=== PATIENT | female | born 1955 | race Caucasian/White ===

== ENCOUNTER 2017-05-27 16:32 | Emergency (ER) | payer OTHER, SELFPAY ==
[2017-05-27 16:34] VITALS: BP 160/83; PULSE 71; RESP 16; TEMP 36.2; O2SAT 97; BMI 30.9
--- NOTE | 2017-05-27 16:48 | ED.VISSUMM ---
- ER Visit Summary Date of Service: 05/27/17 Chief Complaint: Fall, right wrist pain History of Present Illness: The patient is a 61 F who was walking her dog when she tripped and fell. She fell onto her face. She also fell on her outstretched right hand. She has right wrist pain sustained a lower lip laceration. Her last tetanus is unknown. No LOC. She denies any other complaints Physical Examination: Vital signs are reviewed. HEENT exam is 0.5 similar laceration to the bottom lip. It does not cross the vermilion border. Her right wrist is tender diffusely. She does have painful but full range of motion. Her GCS is 15 and her neurologic exam is normal Test Results: Right wrist reveals a small distal radius fracture Emergency Department Course and Treatment: Patient was medicated with Motrin and tetanus. Treatment Plan: The patient does have a small distal radius fracture. I will give her a wrist splint for immobilization. Short course of [place] for home. I do not feel her lip laceration is repaired as it will heal on its own. She will be given orthopedic follow-up Disposition: Discharge Impression: Distal radius fracture, closed, 0.5 cm lip laceration This note was generated with [employer] dictation software. It may contain incorrect words, spelling, and punctuation that were not noted in review of the chart prior to signing ED Disposition - Plan for ED Patient: Chief Complaint: Fall Referrals: Dylan Perdue MD [Primary Care Provider] -
--- NOTE | 2017-05-27 16:50 | RAD_ITS ---
STUDY: X-RAY - RIGHT WRIST REASON FOR EXAM: Female, 61 years old. Pain. Status post fall. TECHNIQUE: 3 view(s) of the wrist were obtained. COMPARISON: None. FINDINGS: There is a cortical defect along the dorsal aspect of the distal radius with an appearance consistent with underlying fracture. There is degenerative arthrosis of the radiocarpal articulation. There is a negative ulnar variance. Normal carpal bones. Normal carpal articulations. There is degenerative arthrosis of the carpometacarpal articulation of the thumb. Normal second through fifth carpometacarpal articulations. Normal visualized metacarpal bones. There is soft tissue swelling overlying the distal radius.. RAD/Wrist min 3 Views IMPRESSION: Findings suggestive of a distal radial fracture. Degenerative changes. Electronically Signed: Zayda Kirkland MD at 17:24 EST Tel , Service support ,
--- NOTE | 2017-05-27 16:52 | ED.DCSUM_ITS ---
- ER Visit Summary Date of Service: 05/27/17 Chief Complaint: Fall, right wrist pain History of Present Illness: The patient is a 61 F who was walking her dog when she tripped and fell. She fell onto her face. She also fell on her outstretched right hand. She has right wrist pain sustained a lower lip laceration. Her last tetanus is unknown. No LOC. She denies any other complaints Physical Examination: Vital signs are reviewed. HEENT exam is 0.5 similar laceration to the bottom lip. It does not cross the vermilion border. Her right wrist is tender diffusely. She does have painful but full range of motion. Her GCS is 15 and her neurologic exam is normal Test Results: Right wrist reveals a small distal radius fracture Emergency Department Course and Treatment: Patient was medicated with Motrin and tetanus. Treatment Plan: The patient does have a small distal radius fracture. I will give her a wrist splint for immobilization. Short course of [place] for home. I do not feel her lip laceration is repaired as it will heal on its own. She will be given orthopedic follow-up Disposition: Discharge Impression: Distal radius fracture, closed, 0.5 cm lip laceration This note was generated with [employer] dictation software. It may contain incorrect words, spelling, and punctuation that were not noted in review of the chart prior to signing ED Disposition - Plan for ED Patient: Chief Complaint: Fall Referrals: Dylan Perdue MD [Primary Care Provider] -
[2017-05-27] MEDS: Ibuprofen 600 MG Tablet PO (16:53)
[2017-05-27] MEDS: Diphth,Pertuss(Acell),Tet Vac 0.5 ML Vial IM (16:53)
--- NOTE | 2017-05-27 17:41 | DCINST.ED_ITS ---
ED Disposition - Plan for ED Patient: Disposition: Home or Assisted Living Chief Complaint: Fall Instructions: ED Mechanical Fall Prescriptions: Hydrocodone Bitart/Apap 5-325 [[place] 5/325] 1 - 2 tab PO Q6H PRN PRN 4 Days #10 tab PRN Reason: Pain Referrals: Dylan Perdue MD [Primary Care Provider] - Jakob Grant MD [STAFF PHYSICIAN] -
[2017-05-27 17:52] VITALS: BP 169/79; PULSE 63; RESP 18; O2SAT 96
== END 2017-05-27 18:03 | disposition home or self-care (01) ==
PROVIDERS: Emergency Provider Emergency Medicine; Family Provider Family Medicine; PCP Family Medicine
DX: S52.501A Unspecified fracture of the lower end of right radius, initial encounter for closed fracture (principal); S01.511A Laceration without foreign body of lip, initial encounter; W01.0XXA Fall on same level from slipping, tripping and stumbling without subsequent striking against object, initial encounter; Y93.K1 Activity, walking an animal; Y92.9 Unspecified place or not applicable; Y99.8 Other external cause status
CPT/HCPCS: 73110; 90715; 99284

== ENCOUNTER → 2017-06-07 08:55 | Outpatient (CLI) | payer SELFPAY ==
--- NOTE | 2017-06-07 08:59 | HPBI_ITS ---
MAMMOGRAPHY - BILATERAL SCREENING REASON FOR EXAM: Female, 61 years old. Routine annual screening examination. PERTINENT HISTORY: Non-contributory. TECHNIQUE: Digital bilateral breast ramesh (3D mammographic acquisition) in the CC and MLO projections. 2-D mediolateral oblique (MLO) and craniocaudad (CC) views of both breasts were obtained. CAD: Full Field Digital Mammography with Computer Added Detection was performed. COMPARISON: Comparison is made with prior outside examination dated December 23, 2015. FINDINGS: Breast Composition: The breasts are heterogeneously dense, which may obscure small masses. There are no dominant masses or suspicious calcifications. No other significant abnormalities are identified. There has been no significant change since the prior study. HPBI/SCREENING MAMM (CAD), BILAT IMPRESSION: Stable bilateral screening mammogram. Yearly follow-up mammogram recommended. (A) ASSESSMENT CATEGORY: BIRADS Category 1: Negative. A letter regarding these results will be sent to the patient by the facility within 30 days. Approximately 10% of breast cancers are not detected by mammography. A normal mammogram should not delay biopsy of a clinically suspicious abnormality. [id number] Electronically Signed: Magdi Jerry MD at 10:23 EDT Tel [phone], Service support ,
== END ==
PROVIDERS: Family Provider Family Medicine; PCP Family Medicine; Visit Provider Obstetrics & Gynecology
DX: Z12.31 Encounter for screening mammogram for malignant neoplasm of breast (principal)
CPT/HCPCS: 77063; 77067

== ENCOUNTER → 2018-09-12 08:13 | Outpatient (CLI) | payer OTHER, SELFPAY ==
--- NOTE | 2018-09-12 08:14 | BI_ITS ---
MAMMOGRAPHY - BILATERAL SCREENING REASON FOR EXAM: Female, 63 years old. Routine annual screening examination. PERTINENT HISTORY: Non-contributory. TECHNIQUE: Digital bilateral breast pool (3D mammographic acquisition) in the CC and MLO projections. 2-D mediolateral oblique (MLO) and craniocaudad (CC) views of both breasts were obtained. CAD: Full Field Digital Mammography with Computer Added Detection was performed. COMPARISON: Comparison is made with prior study dated June 07, 2017 and December 23, 2015. FINDINGS: Breast Composition: The breasts are heterogeneously dense, which may obscure small masses. There are no dominant masses or suspicious calcifications. No other significant abnormalities are identified. There has been no significant change since the prior study. BI/SCREEN MAMM (CAD) W/POOL BILAT IMPRESSION: Stable bilateral screening mammogram. Yearly follow-up mammogram recommended. (A) ASSESSMENT CATEGORY: BIRADS Category 1: Negative. A letter regarding these results will be sent to the patient by the facility within 30 days. Approximately 10% of breast cancers are not detected by mammography. A normal mammogram should not delay biopsy of a clinically suspicious abnormality. [id number] Electronically Signed: Magdi Jerry, at 9:33 EDT , Service support ,
== END ==
PROVIDERS: Family Provider Family Medicine; PCP Family Medicine; Referring Provider Nurse Practitioner Women's Health; Visit Provider Nurse Practitioner Women's Health
DX: Z12.31 Encounter for screening mammogram for malignant neoplasm of breast (principal)
CPT/HCPCS: 77063; 77067

== ENCOUNTER → 2020-01-21 15:47 | Outpatient (CLI) | payer OTHER, SELFPAY ==
[2018-09-12 08:53] VITALS: BMI 30.4
[2020-01-21 15:27] VITALS: BMI 32.0
--- NOTE | 2020-01-21 15:48 | BI_ITS ---
MAMMOGRAPHY - BILATERAL SCREENING REASON FOR EXAM: Female, 64 years old. Routine annual screening examination. PERTINENT HISTORY: Non-contributory. TECHNIQUE: Digital bilateral breast pool (3D mammographic acquisition) in the CC and MLO projections. 2-D mediolateral oblique (MLO) and craniocaudad (CC) views of both breasts were obtained. CAD: Full Field Digital Mammography with Computer Added Detection was performed. COMPARISON: Comparison is made with prior study dated 09/12/2018 and 06/07/2017. FINDINGS: Breast Composition: The breasts are heterogeneously dense, which may obscure small masses. There are no dominant masses or suspicious calcifications. No other significant abnormalities are identified. There has been no significant change since the prior study. BI/SCREEN MAMM (CAD) W/POOL BILAT IMPRESSION: Stable bilateral screening mammogram. Yearly follow-up mammogram recommended. (A) ASSESSMENT CATEGORY: BIRADS Category 1: Negative. A letter regarding these results will be sent to the patient by the facility within 30 days. Approximately 10% of breast cancers are not detected by mammography. A normal mammogram should not delay biopsy of a clinically suspicious abnormality. [id number] Electronically Signed: Magdi Jerry, at 9:16 EDT , Service support ,
== END ==
PROVIDERS: PCP Family Medicine; Referring Provider Nurse Practitioner Women's Health; Visit Provider Nurse Practitioner Women's Health
DX: Z12.31 Encounter for screening mammogram for malignant neoplasm of breast (principal)
CPT/HCPCS: 77063; 77067

== ENCOUNTER 2021-04-06 07:32 | Outpatient (CLI) | payer OTHER, SELFPAY ==
--- NOTE | 2021-04-06 07:35 | BI_ITS ---
MAMMOGRAPHY - BILATERAL SCREENING REASON FOR EXAM: Female, 65 years old. Routine annual screening examination. PERTINENT HISTORY: Non-contributory. TECHNIQUE: Digital bilateral breast pool (3D mammographic acquisition) in the CC and MLO projections. 2-D mediolateral oblique (MLO) and craniocaudad (CC) views of both breasts were obtained. CAD: Full Field Digital Mammography with Computer Added Detection was performed. COMPARISON: Comparison is made with prior study dated 01/21/2020 and 09/12/2018. FINDINGS: Breast Composition: The breasts are heterogeneously dense, which may obscure small masses. There are no dominant masses or suspicious calcifications. No other significant abnormalities are identified. There has been no significant change since the prior study. BI/SCRN MAMM (CAD)W/POOL BILAT IMPRESSION: Stable bilateral screening mammogram. Yearly follow-up mammogram recommended. (A) ASSESSMENT CATEGORY: BIRADS Category 1: Negative. A letter regarding these results will be sent to the patient by the facility within 30 days. Approximately 10% of breast cancers are not detected by mammography. A normal mammogram should not delay biopsy of a clinically suspicious abnormality. [id number] Electronically Signed: Magdi Jerry MD at 8:31 EST , Service support ,
== END 2021-04-06 23:59 | disposition short-term general hospital (02) ==
LOC: OPBI 07:34
PROVIDERS: PCP Family Medicine; Referring Provider Nurse Practitioner Women's Health; Visit Provider Nurse Practitioner Women's Health
DX: Z12.31 Encounter for screening mammogram for malignant neoplasm of breast (principal)
CPT/HCPCS: 77063; 77067

== ENCOUNTER → 2022-05-03 | Outpatient (CLI) | payer OTHER, SELFPAY ==
--- NOTE | 2022-05-03 07:51 | BI_ITS ---
MAMMOGRAPHY - BILATERAL SCREENING REASON FOR EXAM: Female, 66 years old. Routine annual screening examination. PERTINENT HISTORY: Non-contributory. TECHNIQUE: Digital bilateral breast pool (3D mammographic acquisition) in the CC and MLO projections. 2-D mediolateral oblique (MLO) and craniocaudad (CC) views of both breasts were obtained. CAD: Full Field Digital Mammography with Computer Added Detection was performed. COMPARISON: Comparison is made with prior study dated 04/06/2021 and 01/21/2020. FINDINGS: Breast Composition: The breasts are extremely dense, which lowers the sensitivity of mammography. There are no dominant masses or suspicious calcifications. No other significant abnormalities are identified. There has been no significant change since the prior study. BI/SCRN MAMM (CAD)W/POOL BILAT IMPRESSION: Stable bilateral screening mammogram. Yearly follow-up mammogram recommended. (A) ASSESSMENT CATEGORY: BIRADS Category 1: Negative. A letter regarding these results will be sent to the patient by the facility within 30 days. Approximately 10% of breast cancers are not detected by mammography. A normal mammogram should not delay biopsy of a clinically suspicious abnormality. [id number] Electronically Signed: Magdi Jerry MD at 9:45 EST ,
== END | disposition home or self-care (01) ==
LOC: OPBI 07:49
PROVIDERS: PCP Family Medicine; Referring Provider Nurse Practitioner Women's Health; Visit Provider Nurse Practitioner Women's Health
DX: Z12.31 Encounter for screening mammogram for malignant neoplasm of breast (principal)
CPT/HCPCS: 77063; 77067

== ENCOUNTER → 2023-05-23 | Outpatient (CLI) | payer OTHER, MEDICARE, SELFPAY ==
--- NOTE | 2023-05-23 07:21 | BI_ITS ---
MAMMOGRAPHY - BILATERAL SCREENING REASON FOR EXAM: Female, 67 years old. Routine annual screening examination. PERTINENT HISTORY: Non-contributory. TECHNIQUE: Digital bilateral breast pool (3D mammographic acquisition) in the CC and MLO projections. 2-D mediolateral oblique (MLO) and craniocaudad (CC) views of both breasts were obtained. CAD: Full Field Digital Mammography with Computer Added Detection was performed. COMPARISON: Comparison is made with prior study dated May 03, 2022 and April 06, 2021. FINDINGS: Breast Composition: The breasts are extremely dense, which lowers the sensitivity of mammography. There are no dominant masses or suspicious calcifications. No other significant abnormalities are identified. There has been no significant change since the prior study. BI/SCRN MAMM (CAD)W/POOL BILAT IMPRESSION: Stable bilateral screening mammogram. Yearly follow-up mammogram recommended. (A) ASSESSMENT CATEGORY: BIRADS Category 1: Negative. A letter regarding these results will be sent to the patient by the facility within 30 days. Approximately 10% of breast cancers are not detected by mammography. A normal mammogram should not delay biopsy of a clinically suspicious abnormality. [id number] Electronically Signed: Magdi Jerry MD at 8:35 EST ,
--- OUTSIDE RECORDS SUMMARY | 2023-05-23 07:24 | XMS RPT_ITS | CCD ---
Author Name Unknown Address [address] [facility] [address] [place] [address] Organization [facility] Care Team Providers Care Guzzler Builder Name Role Phone [facility] Admitting Unaak iljaime [place] Attending Unava okjaime [place] Primary Care Stacie Jensen MD Primary Care Provider Stacie Perdue MD Primary Care Provider Stacie Perdue MD Primary Care Provider STACIE PERDUE Primary Care Unavailab STACIE Muniz Primary Care Unavailab le STACIE PERDUE Primary Care Unavailab le STACIE PERDUE Referring Unavailab le STACIE PERDUE Primary Care Unavailab le PODLOGAR, MERCED Attending Unavailable STACIE PERDUE Attending Unavailab STACIE Muniz Primary Care Unavailab le PODLOGARMERCED Referring Unavailable STACIE PERDUE Primary Care Unavailab le PODLOGAR, MERCED Referring Unavailable STACIE PERDUE Primary Care Unavailab le PODLOGAR, MERCED Referring Unavailable STACIE PERDUE Primary Care Unavailab le PODLOGAR, MERCED Referring Unavailable MAXIMUS BURNS Referring Unavailable STACIE PERDUE Primary Care Unavailab le O'KATIE BASS Attending Unavailable MAXIMUS BURNS Referring Unavailable STACIE PERDUE Primary Care Unavailab MAXIMUS Billy Referring Unavailable STACIE PERDUE Primary Care Unavailab krysta O'KATIE BASS Attending Unavailable MAXIMUS BURNS Referring Unavailable STACIE PERDUE Primary Care UnavailKATIE Brown Attending Unavailable MAXIMUS BURNS Referring Unavailable STACIE PERDUE Primary Care Unavailab KATIE Nix Attending Unavailable MAXIMUS BURNS Referring Unavailable STACIE PERDUE Primary Care Unavailab KATIE Nix Attending Unavailable STACIE PERDUE Primary Care Unavailab krysta PODLOGARMERCED Referring Unavailable STACIE PERDUE Primary Care Unavailab le PODLOGARMERCED Referring Unavailable Medications Current Medications Medication Drug Class(es) Dates Sig (Normalized) Sig (Original) 24 hr felodipine 10 mg extended release oral tablet (20 sources) Dihydropyridine Calcium Channel Tonio Start: 04-10-2023 End: 10-07-2023 take 1 tablet by mouth once daily felodipine ER (PLENDIL) 10 mg 24 hr tablet Indications: Essential hypertension Take 1 tablet by mouth once daily. 90 tablet 1 04/10/2023 10/07/2023 Active Completed/Discontinued Medications Medication Drug Class(es) Dates Sig (Normalized) Sig (Original) alendronic acid 70 mg oral tablet (9 sources) Bisphosphonate Start: 11-01-2022 take 1 tablet by mouth every week alendronate (FOSAMAX) 70 mg tablet Take 1 tablet by mouth one time a week. Take with a full glass of water, on an empty stomach; do NOT lie down for 30minutes. 12 tablet 1 11/01/2022 Active Problems Active Problems Problem Classification Problem Date Documented Date Episodic/Chronic Adjustment disorders (20 sources) Adjustment disorder with depressed mood; Translations: [Adjustment disorder with depressed mood] Onset: 01-07-2006 01-07-2006 Chronic Diseases of mouth; excluding dental (2 sources) Xerostomia; Translations: [Dry mouth, unspecified] Episodic Disorders of lipid metabolism (3 sources) Mixed hyperlipidemia; Translations: [Mixed hyperlipidemia] Onset: 04-06-2023 10-12-2022 Chronic Esophageal disorders (20 sources) Gastroesophageal reflux disease; Translations: [Gastro-esophageal reflux disease without esophagitis] Onset: 04-06-2023 10-10-2012 Chronic Essential hypertension (20 sources) Essential hypertension; Translations: [Essential (primary) hypertension] Onset: 04-02-2007 01-23-2017 Chronic Genitourinary symptoms and ill-defined conditions (5 sources) Increased frequency of urination; Translations: [Frequency of micturition] Onset: 02-14-2023 01-28-2023 Episodic Heart valve disorders (20 sources) Heart sounds abnormal; Translations: [Other cardiac sounds] 03-04-2005 Episodic Hemorrhoids (20 sources) Internal hemorrhoids; Translations: [Other hemorrhoids] 03-04-2005 Episodic Immunizations and screening for infectious disease (1 source) Suspected disease caused by 2019-nCoV; Translations: [Suspected COVID-19 virus infection] Episodic Mood disorders (20 sources) Depressive disorder; Translations: [Depression] Onset: 09-30-2019 09-30-2019 Chronic Other infections; including parasitic (1 source) Personal history of other infectious and parasitic diseases; Translations: [History of COVID-19] Episodic Other lower respiratory disease (1 source) Dyspnea; Translations: [Shortness of breath] Episodic Other nervous system disorders (20 sources) Carpal tunnel syndrome; Translations: [Carpal tunnel syndrome, unspecified upper limb] Onset: 04-02-2007 04-02-2007 Chronic Other nervous system disorders (3 sources) Paresthesia of hand ; Translations: [Anesthesia of skin] Episodic Other non-traumatic joint disorders (1 source) Bilateral pain of joint of hands; Translations: [Pain in joints of right hand] 04-09-2023 Episodic Other non-traumatic joint disorders (1 source) Pain in joints of right hand; Translations: [Arthralgia of both hands] Onset: 04-06-2023 Episodic Other non-traumatic joint disorders (1 source) Pain in joints of left hand; Translations: [Arthralgia of both hands] Onset: 04-06-2023 Episodic Other nutritional; endocrine; and metabolic disorders (20 sources) Obese class I; Translations: [Obesity, unspecified] 06-07-2017 Chronic Other screening for suspected conditions (not mental disorders or infectious disease) (6 sources) Patient encounter status; Translations: [Encounter for screening mammogram for malignant neoplasm of breast] Onset: 10-08-2022 Episodic Other upper respiratory disease (1 source) Seasonal allergic rhinitis; Translations: [Other seasonal allergic rhinitis] Chronic Other upper respiratory infections (2 sources) Sore throat symptom; Translations: [Acute pharyngitis, unspecified] Episodic Residual codes; unclassified (1 source) Menopause present; Translations: [Asymptomatic menopausal state] 10-26-2022 Episodic Viral infection (1 source) Viral disease; Translations: [Viral infection, unspecified] Episodic Past or Other Problems Problem Classification Problem Date Documented Da te Episodic/Chronic Menopausal disorders (20 sources) Postmenopausal state; Translations: [Hormone replacement therapy] Onset: 05-05-2016 05-05-2016 Episodic Other bone disease and musculoskeletal deformities (20 sources) Osteopenia; Translations: [Other specified disorders of bone density and structure, unspecified site] Onset: 04-11-2012 04-11-2012 Episodic Other bone disease and musculoskeletal deformities (1 source) Other specified disorders of bone density and structure, unspecified site; Translations: [Osteopenia, unspecified location] Onset: 04-11-2012 Episodic Other connective tissue disease (20 sources) Disorder of skeletal muscle; Translations: [Other specified disorders of muscle] Onset: 09-12-2006 09-12-2006 Episodic Other connective tissue disease (20 sources) Lateral epicondylitis; Translations: [Lateral epicondylitis, unspecified elbow] Onset: 10-21-2008 10-21-2008 Episodic Other lower respiratory disease (1 source) Shortness of breath; Translations: [SOB (shortness of breath)] Onset: 10-17-2022 Episodic Other nervous system disorders (1 source) Anesthesia of skin; Translations: [Numbness and tingling in both hands] Onset: 10-14-2022 Episodic Other nervous system disorders (1 source) Paresthesia of skin; Translations: [Numbness and tingling in both hands] Onset: 10-14-2022 Episodic Residual codes; unclassified (1 source) Asymptomatic menopausal state; Translations: [Asymptomatic menopause] Onset: 10-26-2022 Episodic Spondylosis; intervertebral disc disorders; other back problems (4 sources) Neck pain; Translations: [Cervicalgia] Onset: 10-14-2022 Episodic Results Test Name Value Interpretation Reference Range Facil ity Vital Signs Date Time Vital Sign Value Performing Clinician Mary Carmen rizo 04-06-2023 16:32-0500 Body weight 63.59 kg Stacie Perdue MD Work Phone: [facility] 04-06-2023 16:32-0500 Diastolic blood pressure 80 mm[Hg] Stacie Perdue MD Work Phone: [facility] 04-06-2023 16:32-0500 Heart rate 58 /min Stacie Perdue MD Work Phone: [facility] 04-06-2023 16:32-0500 Respiratory rate 16 /min Stacie Perdue MD Work Phone: [facility] 04-06-2023 16:32-0500 SaO2% (BldA) [Mass fraction] 97 % Stacie Perdue MD Work Phone: [facility] 04-06-2023 16:32-0500 Systolic blood pressure 134 mm[Hg] Stacie Perdue MD Work Phone: [facility] 01-28-2023 08:37-0400 Body temperature 97.11 [degF] Yolanda Older HAND CANDY [employer]TER[employer] Work Phone: [facility] 01-28-2023 08:37-0400 Body weight 63.23 kg Yolanda Older [employer] Work Phone: [facility] 01-28-2023 08:37-0400 Diastolic blood pressure 72 mm[Hg] Yolanda Older [employer] Work Phone: [facility] 01-28-2023 08:37-0400 Heart rate 68 /min Yolanda Older [employer] Work Phone: [facility] 01-28-2023 08:37-0400 Respiratory rate 18 /min Yolanda Older [employer] Work Phone: [facility] 01-28-2023 08:37-0400 SaO2% (BldA) [Mass fraction] 98 % Yolanda Older [employer] Work Phone: [facility] 01-28-2023 08:37-0400 Systolic blood pressure 122 mm[Hg] Yolanda Older [employer] Work Phone: [facility] 09-30-2022 10:56-0400 Body temperature 98.01 [degF] Maximus Burns MD Work Phone: [facility] 09-30-2022 10:56-0400 Body weight 66.95 kg Maximus Burns MD Work Phone: [facility] 09-30-2022 10:56-0400 Diastolic blood pressure 64 mm[Hg] Maximus Burns MD Work Phone: [facility] 09-30-2022 10:56-0400 Heart rate 64 /min Maximus Burns MD Work Phone: [facility] 09-30-2022 10:56-0400 Respiratory rate 18 /min Maximus Burns MD Work Phone: [facility] 09-30-2022 10:56-0400 SaO2% (BldA) [Mass fraction] 96 % Maximus Burns MD Work Phone: [facility] 09-30-2022 10:56-0400 Systolic blood pressure 110 mm[Hg] Maximus Burns MD Work Phone: [facility] 01-01-2022 10:08-0400 Body weight 62.14 kg Stacie Perdue MD Work Phone: [facility] 01-01-2022 10:08-0400 Diastolic blood pressure 62 mm[Hg] Stacie Perdue MD Work Phone: [facility] 01-01-2022 10:08-0400 Heart rate 77 /min Stacie Perdue MD Work Phone: [facility] 01-01-2022 10:08-0400 Respiratory rate 16 /min Stacie Perdue MD Work Phone: [facility] 01-01-2022 10:08-0400 SaO2% (BldA) [Mass fraction] 99 % Stacie Perdue MD Work Phone: [facility] [place] 01-01-2022 10:08-0400 Systolic blood pressure 132 mm[Hg] Stacie Perdue MD Work Phone: [facility] [place] 12-03-2021 13:50-0400 Body temperature 98.71 [degF] Linda Luisito [employer] Work Phone: [facility] [place] 12-03-2021 13:50-0400 Body weight 62.32 kg Linda Jorge [employer] Work Phone: [facility] [place] 12-03-2021 13:50-0400 Diastolic blood pressure 70 mm[Hg] Linda Jorge [employer] Work Phone: [facility] [place] 12-03-2021 13:50-0400 Heart rate 77 /min Linda Jorge [employer] Work Phone: [facility] [place] 12-03-2021 13:50-0400 Respiratory rate 18 /min Linda Jorge [employer] Work Phone: [facility] [place] 12-03-2021 13:50-0400 SaO2% (BldA) [Mass fraction] 95 % Linda Jorge [employer] C[employer] Work Phone: [facility] [place] 12-03-2021 13:50-0400 Systolic blood pressure 124 mm[Hg] Linda Jorge [employer] Work Phone: [facility] 11-23-2021 13:01-0400 Body temperature 100 [degF] Katie Thompson [employer] Work Phone: [facility] 11-23-2021 13:01-0400 Body weight 61.69 kg Katie Thompson [employer] Work Phone: [facility] 11-23-2021 13:01-0400 Diastolic blood pressure 80 mm[Hg] Katie Thompson [employer] Work Phone: [facility] 11-23-2021 13:01-0400 Heart rate 85 /min Katie Thompson [employer] Work Phone: [facility] 11-23-2021 13:01-0400 Respiratory rate 18 /min Katie Thompson HAND [employer] Work Phone: [facility] 11-23-2021 13:01-0400 SaO2% (BldA) [Mass fraction] 97 % Katie Thompson [employer] Work Phone: [facility] [place] 11-23-2021 13:01-0400 Systolic blood pressure 124 mm[Hg] Katie Thompson [employer] C[employer] Work Phone: [facility] Encounters Encounter Date Encounter Type Care Provider Facility Start: 05-16-2023 Ashley Perdue MD Work Phone: [facility] [place] Procedures Date Procedure Procedure Detail Performing Clinician Start: 01-28-2023 Urnls dip stick/tabl et rgnt auto w/o microscopy Susie Bailey PA-C Work Phone: Start: 01-21-2023 Lipid 1996 panel - S swetha or Plasma Yolanda Older [employer] Work Phone: Start: 10-26-2022 Dxa bone density claudia dy 1/> sites axial anael Merced Podlogar HAND CANDY C[employer]TER[employer]IOR [employer] Work Phone: Start: 12-03-2021 STREP A MOLECULAR (POC) Linda Jorge [employer] Work Phone: Start: 04-06-2021 Mammography Katie Freed ggs HAND [employer] Work Phone: Start: 04-15-2016 Colonoscopy Katie Freed ggs HAND [employer] Work Phone: Plan of Treatment Date Care Activity Detail Author Start: 01-22-2028 Lipid 1996 panel - S swetha or Plasma Lipid Screening [facility] Start: 01-22-2028 Lipid panel Lipid Screening [facility] Start: 10-09-2027 LIPID SCREEN LIPID SCREEN [facility] Start: 05-28-2027 Urine microalbumin profile [facility] Start: 01-23-2026 LIPID SCREEN LIPID SCREEN [facility] Start: 01-21-2026 Diabetes Screening Diabetes Screenin g [facility] Start: 10-08-2025 DIABETES SCREEN DIABETES SCREEN [facility] Start: 04-06-2024 Annual PCP Team Glass Toughening Operator jack Disease Visit Annual PCP Team Chronic Disease Visit [facility] Start: 04-06-2024 Covid-19 Vaccine (#1) Covid-19 Vacci ne (#1) [facility] Immunizations Immunization Date Immunization Notes Care Provider Yan billy 01-26-2018 influenza, injectabl e, quadrivalent, preservative free Lizzie Boles MD Work Phone: [facility] 01-26-2018 pneumococcal polysaccharide vaccine, 23 valent Lizzie Boles MD Work Phone: [facility] 01-26-2018 influenza virus vacc ine, unspecified formulation Yolanda Older HAND CANDY CUTTER.[facility] Work Phone: [facility] 05-27-2017 tetanus toxoid, redu eugene diphtheria toxoid, and acellular pertussis vaccine, adsorbed Lizzie Boles MD Work Phone: [facility] 12-08-2015 influenza, injectabl e, quadrivalent, contains preservative Katie Thompson HAND CANDY C[employer]TER.[facility] Work Phone: [facility] 03-14-2012 influenza virus vacc ine, unspecified formulation Katie Thompson HAND CAND[employer] C[employer]TER.[facility] Work Phone: [facility] Work Phone: 10-12-2011 tetanus toxoid, redu eugene diphtheria toxoid, and acellular pertussis vaccine, adsorbed Katie Thompson HAND CANDY C[employer]TER.[facility] Work Phone: [facility] Work Phone: 02-16-2010 influenza virus vacc ine, unspecified formulation Katie Thompson HAND CANDY C[employer]TER.[facility] Work Phone: [facility] Work Phone: 01-15-2008 influenza virus vacc ine, unspecified formulation Katie Thompson HAND [employer] C[employer] Work Phone: [facility] 02-05-2007 influenza virus vacc ine, unspecified formulation Katie Thompson HAND CANDY CUTTER.[facility] Work Phone: [facility] Work Phone: Payers Date Payer Category Payer Medicare AETNA MEDICARE A ETNA MEDICARE [facility] [place] [facility] [id number] 2023-Present [phone] [address] [place] [address] [facility] [id number] 2023 Medicare [id number] 2019 Unknown [id number] 2019 Unknown [id number] Social History Date Type Detail Facility Start: 02-01-2011 Tobacco smoking stat [facility] Never smoked tobacco [facility] Work Phone: Start: 02-01-2011 Tobacco use and exposure Smoke less tobacco non-user [facility] Work Phone: Start: 11-23-2021 End: 04-06-2023 Alcohol intake Current non-drinker of alcohol (finding) [facility] Start: 01-12-2021 End: 01-01-2022 History SDOH Alcohol Frequency 1 [facility] Start: 01-12-2021 End: 01-01-2022 History SDOH Social Connections Membership 2 [facility] Start: 01-12-2021 History SDOH Social Connections Living 3 [facility] Start: 01-12-2021 History SDOH Physica l Activity DPW 5 [facility] Start: 01-12-2021 History SDOH Physica l Activity MPS 6 [facility] Start: 01-12-2021 Education 12 [facility] Start: 1955 Sex Assigned At Not on file [facility] Start: 11-13-2021 End: 01-04-2022 Exposure to SARS-CoV-2 (event) Not sure [facility] Work Phone: Start: 11-23-2021 End: 12-03-2021 Exposure to SARS-CoV-2 (event) Yes [facility] Start: 01-12-2021 End: 10-04-2022 History of Social function [place] [facility] Start: 01-12-2021 End: 10-04-2022 Social connection and isolation panel [facility] Do you belong to any clubs or organizations such as moravian groups, unions, fraternal or athletic groups, or school groups? No [facility] Are you now , , , , never or living with a partner? [facility] How often to you hav e a drink containing alcohol? Never [facility] Average Number of Drinks Not on file [facility] Do you feel stress - tense, restless, nervous, or anxious, or unable to sleep at night because your mind is troubled all the time - these days [OSQ] Not at all [facility] (I/We) worried wheth er (my/our) food would run out before (I/we) got money to buy more. Never true [facility] Clinical Notes 04-15-2016 to 05-16-2023 Telephone Encounter - Marion Reyna LPN - 05/16/2023 6:50 PM Stacie Bertrand MD - 04/06/2023 4:51 PM ESTTelephone Encounter - Jeremy Sarajigna DE PAZ - 02/15/2023 9:40 AM EST Note Date & Type Note Facility 05-16-2023 Miscellaneous Notes Patient has been identified by name and date of : Yes Patient mycharts for refill(s): Requested Prescriptions Pending Prescriptions Disp Refills FLUoxetine (PROZAC) 40 mg capsule 90 capsule 0 Sig: Take 1 capsule by mouth once daily. Date of last office visit in primary care: 04/06/2023 Date of next office visit in primary care: 10/06/2023 Please advise. Thank you. Marion Reyna LPN. documented in this encounter [facility] 04-12-2023 Note Patient Outreach (IN [facility]) BRANDON ALFRED ([id number]) 1955 F Date Time Provider Department 04/12/23 STACIE PERDUE During your visit today, we recorded the following information about you: Allergies As of Date: 04/12/2023 (No Known Allergies) Date Reviewed: 04/06/2023 Reviewed by: Marion Reyna LPN - Fully Assessed Visit Diagnosis:Encounter for screening mammogram for breast cancer [Z12.31] Order(s):[facility] SCREENING [[id number]] Order #: [id number] FUTURE Prescriptions as of 04/17/2023 - felodipine ER (PLENDIL) 10 mg 24 hr tablet Take 1 tablet by mouth once daily. - pantoprazole DR (PROTONIX) 20 mg tablet Take 1 tablet by mouth once daily. - hydroCHLOROthiazide 25 mg tablet Take 1 tablet by mouth once daily. - meloxicam (MOBIC) 15 mg tablet TAKE ONE TABLET BY MOUTH EVERY DAY NEEDED WITH FOOD. - FLUoxetine (PROZAC) 40 mg capsule Take 1 capsule by mouth once daily. - buPROPion XL (WELLBUTRIN XL) 150 mg 24 hr tablet Take 1 tablet by mouth once daily. - alendronate (FOSAMAX) 70 mg tablet Take 1 tablet by mouth one time a week. Take with a full glass of water, on an empty stomach; do NOT lie down for 30minutes. - atorvastatin (LIPITOR) 10 mg tablet Take 1 tablet by mouth daily at bedtime. For cholesterol. - Ascorbic Acid (VITAMIN C) 1,000 mg tablet Take 1,000 mg by mouth once daily. - calcium carbonate/vitamin D3 (CALCIUM 600 + D ORAL) Take by mouth once daily. - Biotin 10,000 mcg cap Take by mouth once daily. - Cholecalciferol, Vitamin D3, 2,000 unit cap Take 1 tablet by mouth once daily. - magnesium oxide 400 mg cap Take 3 capsules by mouth once daily. - Aspirin 81 mg Tab Take 81 mg by mouth once daily. - Lactobacillus acidophilus (BACID) cap Take 1 capsule by mouth once daily. - MULTIVITAMIN TAB Take 2 tablets daily. Facility-Administered Medications as of 04/17/2023 - perflutren lipid microspheres 1.3 mL in NaCl (PF) 0.9% 10 mL injection (DEFINITY) - sodium chloride 0.9 % (flush) 10 mL (BD POSIFLUSH) Problem List As Of Date 04/12/2023 Noted Resolved INT HEMORRHOID W/O COMPL [K64.8] ABNORM HEART SOUNDS NEC [R01.2] ADJUSTMENT DISORDER WITH DEPRESSED MOOD [F43.21]01/07/2006 PAIN ABDOMEN( Other Specific Site or) [R10.9] 01/07/2006 07/30/2014 ELEV BL PRES W/O HYPERTN [R03.0] 03/29/2006 04/02/2007 MUSCLE DISORDERS NEC [M62.89] 09/12/2006 Essential hypertension [I10] 04/02/2007 CARPAL TUNNEL SYNDROME [G56.00] 04/02/2007 Pain in limb [M79.609] 06/15/2007 07/30/2014 PAIN BACK, LOW [M54.50] 05/13/2008 07/30/2014 Other malaise and fatigue [R53.81, R53.83] 09/09/2008 07/30/2014 LATERAL EPICONDYLITIS [M77.10] 10/21/2008 Overweight(278.02) [E66.3] 10/07/2009 07/30/2014 Symptomatic menopausal or female climacteric st*12/21/2009 07/30/2014 Osteopenia [M85.80] 04/11/2012 GERD (gastroesophageal reflux disease) [K21.9] Endometriosis [N80.9] 07/30/2014 Special screening for malignant neoplasm of col*04/15/2016 05/05/2016 Postmenopausal HRT (hormone replacement therapy*05/05/2016 Obesity (BMI 30.0-34.9) [E66.9] Depression [F32.A] Encounter Status:Closed by EPIC, PRODUSER on 04/17/23 [facility] 04-06-2023 Note HNO ID: [id number] Author: STACIE PERDUE MD Service: ? Author Type: Physician Type: Progress Notes Filed: 04/09/2023 13:37 Note Text: Chief Complaint Patient presents with: Follow Up: 6 month HPI Brandon Alfred is a 67 year old female who presents here today for Above Complaints.. Patient complaining of bilateral hand stiffness and pain which started with change in weather. Feels like she cannot close hands easily and has pain over PIP joints. Seems like pain gets worse as day goes on. Treating with Turmeric, ibuprofen, and meloxicam without improvement in symptoms. Denies fall or injury, erythema, fever/chills, swelling. BP well controlled on current regimen. Not checking at home. Denies HTN symptoms. Depression symptoms well controlled on Wellbutrin and Prozac without side effects. Not seeing counseling and does not want referral. Denies SI/HI. GERD controlled on Protonix. Compliant with statin without side effects. Discussed improved cholesterol on recent labs. Refusing vaccinations today. Past medical history, appointments, medications, allergies reviewed. Previous Medical History PAST MEDICAL HISTORY Diagnosis Date Back pain Depression Endometriosis GERD (gastroesophageal reflux disease) Hypertension Obesity (BMI 30.0-34.9) Osteopenia Other abnormal heart sounds rheumatic fever Previous Surgical History PAST SURGICAL HISTORY Procedure Laterality Date COLONOSCOPY FLX DX W/COLLJ SPEC WHEN PFRMD 04/15/2016 Colonoscopy DILATION AND CURETTAGE DXAND/THER NONOBSTETRIC x 2 LIG/TRNSXJ FLP TUBE ABDL/VAG APPR UNI/BI 1992 OOPHORECTOMY PARTIAL/TOTAL UNI/BI bilaterally with tubes at time of hysterectomy SIGMOIDOSCOPY FLX DX W/COLLJ SPEC BR/WA IF PFRMD 06/19/01 Sigmoidoscopy, flexible TONSILLECTOMY AND ADENOIDECTOMY as a child TOTAL ABDOMINAL HYSTERECT W/WO RMVL TUBE OVARY 1993 NAKIA/BSO-endometriosis Family History FAMILY HISTORY Problem Relation Age of Onset Coronary Artery Disease Mother [place] age 70s Hypertension Mother Diabetes Mother Stroke Mother Thyroid Mother Arthritis Father Coronary Artery Disease Maternal Grandmother [place] Coronary Artery Disease Maternal Grandfather UT Patient Allergies ALLERGIES No Known Allergies Current Medications Current Outpatient Medications on File Prior to Visit Medication Sig FLUoxetine (PROZAC) 40 mg capsule Take 1 capsule by mouth once daily. buPROPion XL (WELLBUTRIN XL) 150 mg 24 hr tablet Take 1 tablet by mouth once daily. pantoprazole DR (PROTONIX) 20 mg tablet Take 1 tablet by mouth once daily. hydroCHLOROthiazide 25 mg tablet Take 1 tablet by mouth once daily. alendronate (FOSAMAX) 70 mg tablet Take 1 tablet by mouth one time a week. Take with a full glass of water, on an empty stomach; do NOT lie down for 30minutes. atorvastatin (LIPITOR) 10 mg tablet Take 1 tablet by mouth daily at bedtime. For cholesterol. Ascorbic Acid (VITAMIN C) 1,000 mg tablet Take 1,000 mg by mouth once daily. calcium carbonate/vitamin D3 (CALCIUM 600 + D ORAL) Take by mouth once daily. Biotin 10,000 mcg cap Take by mouth once daily. meloxicam (MOBIC) 7.5 mg tablet TAKE ONE TABLET BY MOUTH EVERY DAY NEEDED WITH FOOD. Cholecalciferol, Vitamin D3, 2,000 unit cap Take 1 tablet by mouth once daily. magnesium oxide 400 mg cap Take 3 capsules by mouth once daily. Aspirin 81 mg Tab Take 81 mg by mouth once daily. Lactobacillus acidophilus (BACID) cap Take 1 capsule by mouth once daily. MULTIVITAMIN TAB Take 2 tablets daily. felodipine ER (PLENDIL) 10 mg 24 hr tablet Take 1 tablet by mouth once daily. Current Facility-Administered Medications on File Prior to Visit Medication perflutren lipid microspheres 1.3 mL in NaCl (PF) 0.9% 10 mL injection (DEFINITY) sodium chloride 0.9 % (flush) 10 mL (BD POSIFLUSH) Social History Social History Tobacco Use Smoking status: Never Smokeless tobacco: Never Vaping Use Vaping Use: Never used Substance Use Topics Alcohol use: No Drug use: No Review of Symptoms REVIEW OF SYSTEMS GENERAL: No weight loss, malaise or fevers RESPIRATORY: Negative for cough, hemoptysis, wheezing, COPD, dyspnea or shortness of breath CARDIOVASCULAR: Negative for chest pain, leg swelling, hypertension, CHF or palpitations GI: No nausea, vomiting, or diarrhea SKIN: Negative for lesions, rash, and itching EXAM: BP 134/80 Pulse (!) 58 Resp 16 Wt 63.6 kg (140 lb 3.2 oz) SpO2 97% BMI 26.81 kg/m? General Appearance: Well appearing, alert, in no acute distress, well-hydrated, well nourished.. Skin: Skin color, texture, turgor normal, no suspicious rashes or lesions. Lungs: Lungs clear to auscultation. No wheezing, rhonchi, rales.. Heart: RRR without murmur, gallop, or rubs. No ectopy. Abdomen: Normal abdominal exam, Abdomen soft, non-tender. Bowel sounds normal. No masses, organomegaly. Extremities: No deformities, edema, skin discolor (more content not included)... [facility] 04-06-2023 History of Present illness Narrative Chief Complaint Patient presents with: Follow Up: 6 month HPI Brandon Alfred is a 67 year old female who presents here today for Above Complaints.. Patient complaining of bilateral hand stiffness and pain which started with change in weather. Feels like she cannot close hands easily and has pain over PIP joints. Seems like pain gets worse as day goes on. Treating with Turmeric, ibuprofen, and meloxicam without improvement in symptoms. Denies fall or injury, erythema, fever/chills, swelling. BP well controlled on current regimen. Not checking at home. Denies HTN symptoms. Depression symptoms well controlled on Wellbutrin and Prozac without side effects. Not seeing counseling and does not want referral. Denies SI/HI. GERD controlled on Protonix. Compliant with statin without side effects. Discussed improved cholesterol on recent labs. Refusing vaccinations today. Past medical history, appointments, medications, allergies reviewed. Previous Medical History PAST MEDICAL HISTORY Diagnosis Date Back pain Depression Endometriosis GERD (gastroesophageal reflux disease) Hypertension Obesity (BMI 30.0-34.9) Osteopenia Other abnormal heart sounds rheumatic fever Previous Surgical History PAST SURGICAL HISTORY Procedure Laterality Date COLONOSCOPY FLX DX W/COLLJ SPEC WHEN PFRMD 04/15/2016 Colonoscopy DILATION & CURETTAGE DX&/THER NONOBSTETRIC x 2 LIG/TRNSXJ FLP TUBE ABDL/VAG APPR UNI/BI 1992 OOPHORECTOMY PARTIAL/TOTAL UNI/BI bilaterally with tubes at time of hysterectomy SIGMOIDOSCOPY FLX DX W/COLLJ SPEC BR/WA IF PFRMD 06/19/01 Sigmoidoscopy, flexible TONSILLECTOMY & ADENOIDECTOMY <AGE 13 as a child TOTAL ABDOMINAL HYSTERECT W/WO RMVL TUBE OVARY 1993 NAKIA/BSO-endometriosis Family History FAMILY HISTORY Problem Relation Age of Onset Coronary Artery Disease Mother [place] age 70s Hypertension Mother Diabetes Mother Stroke Mother Thyroid Mother Arthritis Father Coronary Artery Disease Maternal Grandmother [place] Coronary Artery Disease Maternal Grandfather [place] Patient Allergies ALLERGIES No Known Allergies Current Medications Current Outpatient Medications on File Prior to Visit Medication Sig FLUoxetine (PROZAC) 40 mg capsule Take 1 capsule by mouth once daily. buPROPion XL (WELLBUTRIN XL) 150 mg 24 hr tablet Take 1 tablet by mouth once daily. pantoprazole DR (PROTONIX) 20 mg tablet Take 1 tablet by mouth once daily. hydroCHLOROthiazide 25 mg tablet Take 1 tablet by mouth once daily. alendronate (FOSAMAX) 70 mg tablet Take 1 tablet by mouth one time a week. Take with a full glass of water, on an empty stomach; do NOT lie down for 30minutes. atorvastatin (LIPITOR) 10 mg tablet Take 1 tablet by mouth daily at bedtime. For cholesterol. Ascorbic Acid (VITAMIN C) 1,000 mg tablet Take 1,000 mg by mouth once daily. calcium carbonate/vitamin D3 (CALCIUM 600 + D ORAL) Take by mouth once daily. Biotin 10,000 mcg cap Take by mouth once daily. meloxicam (MOBIC) 7.5 mg tablet TAKE ONE TABLET BY MOUTH EVERY DAY NEEDED WITH FOOD. Cholecalciferol, Vitamin D3, 2,000 unit cap Take 1 tablet by mouth once daily. magnesium oxide 400 mg cap Take 3 capsules by mouth once daily. Aspirin 81 mg Tab Take 81 mg by mouth once daily. Lactobacillus acidophilus (BACID) cap Take 1 capsule by mouth once daily. MULTIVITAMIN TAB Take 2 tablets daily. felodipine ER (PLENDIL) 10 mg 24 hr tablet Take 1 tablet by mouth once daily. Current Facility-Administered Medications on File Prior to Visit Medication perflutren lipid microspheres 1.3 mL in NaCl (PF) 0.9% 10 mL injection (DEFINITY) sodium chloride 0.9 % (flush) 10 mL (BD POSIFLUSH) Social History Social History Tobacco Use Smoking status: Never Smokeless tobacco: Never Vaping Use Vaping Use: Never used Substance Use Topics Alcohol use: No Drug use: No Review of Symptoms REVIEW OF SYSTEMS GENERAL: No weight loss, malaise or fevers RESPIRATORY: Negative for cough, hemoptysis, wheezing, COPD, dyspnea or shortness of breath CARDIOVASCULAR: Negative for chest pain, leg swelling, hypertension, CHF or palpitations GI: No nausea, vomiting, or diarrhea SKIN: Negative for lesions, rash, and itching EXAM: BP 134/80 Pulse (!) 58 Resp 16 Wt 63.6 kg (140 lb 3.2 oz) SpO2 97% BMI 26.81 kg/m General Appearance: Well appearing, alert, in no acute distress, well-hydrated, well nourished.. Skin: Skin color, texture, turgor normal, no suspicious rashes or lesions. Lungs: Lungs clear to auscultation. No wheezing, rhonchi, rales.. Heart: RRR without murmur, gallop, or rubs. No ectopy. Abdomen: Normal abdominal exam, Abdomen soft, non-tender. Bowel sounds normal. No masses, organomegaly. Extremities: No deformities, edema, skin discoloration, clubbing or cyanosis. Good capillary refill. . Musculoskeletal: No joint swelling, deformity, or tenderness. Mildly limited ROM with finger flexion bilaterally, but patient can make full fist. 5/5 cleaning attendant strength. Health Maintenance List Covid-19 Vaccine(1) Never done Shingrix Vaccine(1 of 2) Never done RSV Vaccine(1 - 1-dose 60+ series) Never done Pneumococcal Vaccine: 65+(2 of 2 - PCV) due on 2021 Mammogram Screening due on 04/06/2022 Colorectal Cancer Screening due on 10/09/2022 Influenza Vaccine(1) due on 11/25/2022 Advance Directive Discussion Never done Annual PCP Team Chronic Disease Visit due on 10/05/2023 BP Controlled (<130/80) due on 01/29/2024 Diabetes Screening due on 01/21/2026 DTaP,Tdap,Td Vaccine(3 - Td or Tdap) due on 05/28/2027 Lipid Screening due on 01/22/2028 Bone Density Screening Completed Hepatitis C Screening Completed Pap Testing Discontinued Data reviewed Component Latest Ref Rng & Units 10/08/2022 01/21/2023 Protein, Total 6.3 - 8.0 g/dL 6.4 6.4 Albumin 3.9 - 4.9 g/dL 4.2 4.3 Calcium 8.5 - 10.2 mg/dL 9.4 9.6 Bilirubin, Total 0.2 - 1.3 mg/dL 0.4 0.5 Alkaline Phosphatase 34 - 123 U/L 61 53 AST 13 - 35 U/L 21 20 ALT 7 - 38 U/L 22 25 Glucose 74 - 99 mg/dL 103 (H) 120 (H) BUN 7 - 21 mg/dL 33 (H) 18 Creatinine 0.58 - 0.96 mg/dL 0.73 0.71 Sodium 136 - 144 mmol/L 139 139 Potassium 3.7 - 5.1 mmol/L 4.3 4.2 Chloride 97 - 105 mmol/L 102 101 CO2 22 - 30 mmol/L 25 28 Anion Gap 9 - 18 mmol/L 12 10 eGFR >=60 mL/min/1.73m 91 94 Cholesterol, Total <200 mg/dL 206 (H) 160 Triglyceride <150 mg/dL 103 106 HDL Cholesterol >39 mg/dL 64 60 Non HDL Cholesterol <130 mg/dL 142 (H) 100 Fasting Time hrs 12 12 VLDL Cholesterol <30 mg/dL 21 21 TC:HDL Ratio <5.10 3.22 2.67 LDL Cholesterol <100 mg/dL 121 (H) 79 LDL:HDL Ratio <2.54 1.89 1.32 Occult Blood, Stool Negative Negative ASSESSMENT/PLAN: 1. Arthralgia of both hands - ICD9: 719.44, ICD10: M25.541, M25.542 (primary diagnosis) Suspect OA. Discussed ice/heat, stretching at home and meloxicam for pain. Offered referral to PT/OT which she is refusing. Call if symptoms worsening. 2. Essential hypertension - ICD9: 401.9, ICD10: I10 - Controlled - Continue current medications - Recommend home blood pressure monitoring, to bring results to next visit - Encouraged sodium restriction, DASH or Mediterranean diet - Recommend regular aerobic exercise 3. Hyperlipidemia, mixed - ICD9: 272.2, ICD10: E78.2 - Improving control - Continue current medications - Counseled on healthy diet and regular exercise 4. GERD without esophagitis - ICD9: 530.81, ICD10: K21.9 - Continue treatment with Protonix 20mg QD 5. Mild episode of recurrent major depressive disorder (HCC) - ICD9: 296.31, ICD10: F33.0 Controlled on Prozac. 6. Osteopenia, unspecified location - ICD9: 733.90, ICD10: M85.80 - continue tx with alendronate (Fosamax) - Reviewed the need for Calcium and Vitamin D supplements and weight bearing exercise as tolerated Stacie Perdue MD documented in this encounter [facility] [place] 02-15-2023 Miscellaneous Notes Phoned patient and left detailed message with results from [employer] on voicemail. ----- Message from Merced Ag APRN.CARLOS sent at 02/15/2023 6:57 AM EST ----- Normal UA [employer]ced [employer] APRN.CNP documented in this encounter [facility] [place] 01-30-2023 Miscellaneous Notes Patient phones requesting refills as follows: Requested Prescriptions Pending Prescriptions Disp Refills FLUoxetine (PROZAC) 40 mg capsule 90 capsule 0 Sig: Take 1 capsule by mouth once daily. buPROPion XL (WELLBUTRIN XL) 150 mg 24 hr tablet 90 tablet 0 Sig: Take 1 tablet by mouth once daily. MINNIE 10/04/22 NOV 04/06/23 Please review and advise. Todd Benavidez documented in this encounter [facility] [place] 01-30-2023 Miscellaneous Notes Detailed message left for patient about retest on verified voicemail. Instructed to call office back if has any further questions. Yoly Casey LPN Order for retest placed. Please let patient know. Merced Ag APRN.CNP Patient returned call and given provider's message below. Pt states her sx's are improving and she plans to continue antibiotic. Patient requesting message be sent to PCP office asking if they would be agreeable to placing UA res-test t have completed in 2-4 weeks as recommended by EC below. Please all pt with PCP office response. Joana Agustin RN Left VM instructing patient to return call to receive results. Ronel Christine MA Please notify that urine culture showed likely contamination. If still having s/s will need to return for retest. May continue taking the antibiotic if symptoms are improving. If symptoms persist/worsen f/u with primary care. Hematuria noted on ua, patient should have urine retested with pcp in 2-4 weeks to see if persisting. documented in this encounter [facility] [place] 01-28-2023 Note HNO ID: [id number] Author: Yolanda Walker APRN.CARLOS Service: ? Author Type: Nurse Practitioner Type: Progress Notes Filed: 01/28/2023 8:51 AM Note Text: CC: Patient presents with: Urinary Frequency: Frequency, urgency and burning x 6 days HPI Brandon Alfred is a 67 year old female who presents with complaint of possible UTI. These symptoms have been present for 5 days. Associated symptoms: burning, urgency, and frequency Denies: backpain, hematuria, fever, chills, abdominal pain, and flank pain Treatments: increasing her fluids The ROS was otherwise negative. PMH, Medications, labs, allergies, and recent past visits with PCP were reviewed and updated as able. PHYSICAL EXAM: BP 122/72 Pulse 68 Temp 36.2 ?C (97.1 ?F) (Tympanic) Resp 18 Wt 63.2 kg (139 lb 6.4 oz) SpO2 98% BMI 26.66 kg/m? General: Well appearing and alert CV: Regular rate and rhythm without obvious murmur Lungs: clear to auscultation bilaterally Back: no CVA tenderness Abdomen: soft, nontender, nondistended ASSESSMENT/PLAN: 1. Dysuria - ICD9: 788.1, ICD10: R30.0 (primary diagnosis) Urine dip positive for large blood, large leuks and 100 protein - send URINE CULTURE - start Macrobid BID x 5 days - Follow-up with PCP in 2-3 days if symptoms persist or sooner if worsen 2. Urinary frequency - ICD9: 788.41, ICD10: R35.0 As above - UA DIP, URINE (POC) - URINE CULTURE 3. Microscopic hematuria - ICD9: 599.72, ICD10: R31.29 As above - URINE CULTURE Prescription instructions reviewed with patient as applicable. Potential red flag symptoms discussed with the patient. Reviewed appropriate action plan to take if red flag symptoms occur. Patient agreeable to treatment plan. Yolanda Walker APRN.CNP [facility] 01-28-2023 Instructions Yolanda Walker APRN.CNP - 01/28/2023 8:47 AM EDT URINARY TRACT INFECTION GENERAL INFORMATION: A urinary tract infection (UTI) is an infection of the bladder or kidneys. A bladder infection, called cystitis, is the more common type. If the infection travels up to the kidneys, it is called pyelonephritis. This can be more serious. UTIs are a common problem in women. Having sexual relations can leave a woman more susceptible to developing a UTI, but it is not sexually transmitted like gonorrhea. Some women have a problem with recurrent UTIs. INSTRUCTIONS: 1. Take antibiotic exactly as directed. Be sure to take all the medication prescribed, even if your symptoms disappear. If you stop treatment early, the infection may not be fully treated and the symptoms could come back again. 2. Get plenty of rest. You may take acetaminophen for fever and aches. 3. Drink 6 to 8 glasses of fluids, especially water, every day. This helps wash out germs from your urinary tract. Cranberry juice or other sources of vitamin C are also good for you. 4. Urinate often, as soon as you feel the urge. Empty your bladder completely. Urinate before and after you have sex. 5. Always wipe from front to back after going to the bathroom. This pushes germs away from your bladder, rather than towards it. 6. Showers are better than baths, and you should wash the genital area daily. Avoid bubble bath or bath oils if you do take a bath. 7. Wear underwear and pantyhose with a cotton crotch. CALL OFFICE IF: 1. You have a temperature over 102F (38.8C) after 48 hours on medication. 2. You notice blood in your urine. 3. Your symptoms don't improve in 2 days. 4. You develop nausea, vomiting, diarrhea, or a rash. 5. You develop new or unexplained symptoms. These may be related to the medication you are taking. 6. Your symptoms return after you finish treatment. documented in this encounter [facility] [place] 01-28-2023 History of Present illness Narrative CC: Patient presents with: Urinary Frequency: Frequency, urgency and burning x 6 days HPI Brandon Alfred is a 67 year old female who presents with complaint of possible UTI. These symptoms have been present for 5 days. Associated symptoms: burning, urgency, and frequency Denies: backpain, hematuria, fever, chills, abdominal pain, and flank pain Treatments: increasing her fluids The ROS was otherwise negative. PMH, Medications, labs, allergies, and recent past visits with PCP were reviewed and updated as able. PHYSICAL EXAM: BP 122/72 Pulse 68 Temp 36.2 C (97.1 F) (Tympanic) Resp 18 Wt 63.2 kg (139 lb 6.4 oz) SpO2 98% BMI 26.66 kg/m General: Well appearing and alert CV: Regular rate and rhythm without obvious murmur Lungs: clear to auscultation bilaterally Back: no CVA tenderness Abdomen: soft, nontender, nondistended ASSESSMENT/PLAN: 1. Dysuria - ICD9: 788.1, ICD10: R30.0 (primary diagnosis) Urine dip positive for large blood, large leuks and 100 protein - send URINE CULTURE - start Macrobid BID x 5 days - Follow-up with PCP in 2-3 days if symptoms persist or sooner if worsen 2. Urinary frequency - ICD9: 788.41, ICD10: R35.0 As above - UA DIP, URINE (POC) - URINE CULTURE 3. Microscopic hematuria - ICD9: 599.72, ICD10: R31.29 As above - URINE CULTURE Prescription instructions reviewed with patient as applicable. Potential red flag symptoms discussed with the patient. Reviewed appropriate action plan to take if red flag symptoms occur. Patient agreeable to treatment plan. Yolanda Walker APRN.CNP documented in this encounter [facility] [place] 11-09-2022 Note HNO ID: [id number] Author: Katie Leonard, PT Service: ? Author Type: Physical Therapist Type: Progress Notes Filed: 11/09/2022 6:18 PM Note Text: Episode Visit Count: 6 Therapist That Will Accept/Oversee The Plan Of Care: Katie Leonard Start of Care Date: 10/14/22 Onset Date: 10/14/21 Plan of Care Certification Date: 10/14/22 Next Certification Due Date: 11/18/22 [facility] PHYSICAL THERAPY DISCONTINUANCE OF CARE PLAN OF CARE UPDATE: Assessment: Brandon Alfred is discontinued from Physical Therapy services due to goal achievement.. Patient was seen for 6 visits from Start of Care Date: 10/14/22 to 11/09/2022 and treatment included: Therapeutic exercise and Self-custodial management. Goals for Episode of Care: created on 10/14/22 through 11/25/22 Goals updated on 11/09/2022. Independent in a Home Exercise Program. -- MET Patient will decrease pain to 1-2/10 with functional activities to allow patient to improve tolerance for ADLs. -- MET Restore pain free cervical ROM to minimal to no limitation grossly to allow for functional movements. -- MET Drive with no aggravation of pain/symptoms. -- MET Sleep throughout the night without pain/symptoms. -- MET Maintain proper sitting posture throughout the session to allow for reduced symptoms with ADLs. -- PARTIALLY MET Patient Goals: reduce neck/LUE pain with work and ADLs -- MET SUBJECTIVE: Pt. is self managing her symptoms with HEP. Denies pain today.. Patient Goals: reduce neck/LUE pain with work and ADLs Functional Limitations: reaching overhead (turning L, typing) Pain: Pain Pain Level: 0 Pain Location: Neck - Left Post Treatment Pain Post Treatment Pain Level: 0 Post Treatment Pain Location: Neck - Left PROMIS Scales Higher is Better 11/09/2022 10/12/2022 Phys Func - Score 54 (within normal limits) 45 (within normal limits) Phys Func - Percentile 66 % 31 % Self-Eff Symptom - Score 62 (High) 50 (Average) Self-Eff Symptom - Percentile 88 % 50 % T-scores: mean of general population = 50. 5 points is clinically meaningfully difference Percentiles provide an indication of how the patient's score ranks in relation to the general population. Higher percentile rankings indicate better function/quality of life. 50th percentile is the average of the general population and indicates half of respondents had a worse score. OBJECTIVE MEASURES WITH LEVEL OF FUNCTION: Cervical Spine ROM Cervical Protrusion AROM: Normal Cervical Retraction AROM: Normal Cervical Flexion AROM: Normal Cervical Extension AROM: Normal Cervical Side-Bend Right AROM (degrees): 35 Degrees Cervical Side-Bend Left AROM (degrees) : 33 Degrees Cervical Rotation Right AROM: Normal Cervical Rotation Left AROM: Normal TREATMENT: Therapeutic Exercise: 1: *UT stretch 3x30 sec each side (reaching the UE behind the back to depress the scapula) 2: cervical flexion, extension, protraction, retraction, SB each side, and rotation each side 1x each 3: B scapular retractions 2x15 4: standing scapular mid rows with GTB 3x15 (cues to complete slowly) 5: standing B shoulder extension with GTB 3x15 (cues to complete slowly) Skilled Intervention: Patient was educated in proper exercise technique and purpose for exercises. Skilled judgment was provided in selection of appropriate interventions. Provided written instruction for home exercise program to facilitate proper performance and compliance. Correct performance of therapeutic exercises was facilitated with verbal and visual cuing. Educated patient on rationale for performing exercises in regards to decreasing fatigue , increase ease of ADL, and ROM and function . Patient education as noted. Billing Therapeutic Exercise Treatment Minutes: 30 Total Treatment Time Minutes (timed/untimed): 30 Session Start Time : 1745 Session Stop Time : 1814 Katie Leonard, PT [facility] 11-09-2022 History of Present illness Narrative Episode Visit Count: 6 Therapist That Will Accept/Oversee The Plan Of Care: Katie Leonard Start of Care Date: 10/14/22 Onset Date: 10/14/21 Plan of Care Certification Date: 10/14/22 Next Certification Due Date: 11/18/22 REHABILITATION AND SPORTS THERAPY PHYSICAL THERAPY DISCONTINUANCE OF CARE PLAN OF CARE UPDATE: Assessment: Brandon Alfred is discontinued from Physical Therapy services due to goal achievement.. Patient was seen for 6 visits from Start of Care Date: 10/14/22 to 11/09/2022 and treatment included: Therapeutic exercise and Self-custodial management. Goals for Episode of Care: created on 10/14/22 through 11/25/22 Goals updated on 11/09/2022. Independent in a Home Exercise Program. -- MET Patient will decrease pain to 1-2/10 with functional activities to allow patient to improve tolerance for ADLs. -- MET Restore pain free cervical ROM to minimal to no limitation grossly to allow for functional movements. -- MET Drive with no aggravation of pain/symptoms. -- MET Sleep throughout the night without pain/symptoms. -- MET Maintain proper sitting posture throughout the session to allow for reduced symptoms with ADLs. -- PARTIALLY MET Patient Goals: reduce neck/LUE pain with work and ADLs -- MET SUBJECTIVE: Pt. is self managing her symptoms with HEP. Denies pain today.. Patient Goals: reduce neck/LUE pain with work and ADLs Functional Limitations: reaching overhead (turning L, typing) Pain: Pain Pain Level: 0 Pain Location: Neck - Left Post Treatment Pain Post Treatment Pain Level: 0 Post Treatment Pain Location: Neck - Left PROMIS Scales Higher is Better 11/09/2022 10/12/2022 Phys Func - Score 54 (within normal limits) 45 (within normal limits) Phys Func - Percentile 66 % 31 % Self-Eff Symptom - Score 62 (High) 50 (Average) Self-Eff Symptom - Percentile 88 % 50 % T-scores: mean of general population = 50. 5 points is clinically meaningfully difference Percentiles provide an indication of how the patient's score ranks in relation to the general population. Higher percentile rankings indicate better function/quality of life. 50th percentile is the average of the general population and indicates half of respondents had a worse score. OBJECTIVE MEASURES WITH LEVEL OF FUNCTION: Cervical Spine ROM Cervical Protrusion AROM: Normal Cervical Retraction AROM: Normal Cervical Flexion AROM: Normal Cervical Extension AROM: Normal Cervical Side-Bend Right AROM (degrees): 35 Degrees Cervical Side-Bend Left AROM (degrees) : 33 Degrees Cervical Rotation Right AROM: Normal Cervical Rotation Left AROM: Normal TREATMENT: Therapeutic Exercise: 1: *UT stretch 3x30 sec each side (reaching the UE behind the back to depress the scapula) 2: cervical flexion, extension, protraction, retraction, SB each side, and rotation each side 1x each 3: B scapular retractions 2x15 4: standing scapular mid rows with GTB 3x15 (cues to complete slowly) 5: standing B shoulder extension with GTB 3x15 (cues to complete slowly) Skilled Intervention: Patient was educated in proper exercise technique and purpose for exercises. Skilled judgment was provided in selection of appropriate interventions. Provided written instruction for home exercise program to facilitate proper performance and compliance. Correct performance of therapeutic exercises was facilitated with verbal and visual cuing. Educated patient on rationale for performing exercises in regards to decreasing fatigue , increase ease of ADL, and ROM and function . Patient education as noted. Billing Therapeutic Exercise Treatment Minutes: 30 Total Treatment Time Minutes (timed/untimed): 30 Session Start Time : 1744 Session Stop Time : 1814 Katie Leonard PT documented in this encounter [facility] [place] 11-04-2022 Note HNO ID: [id number] Author: Katie Leonard PT Service: ? Author Type: Physical Therapist Type: Progress Notes Filed: 11/04/2022 8:48 AM Note Text: Episode Visit Count: 5 Therapist That Will Accept/Oversee The Plan Of Care: Katie Leonard Start of Care Date: 10/14/22 Onset Date: 10/14/21 Plan of Care Certification Date: 10/14/22 Next Certification Due Date: 11/18/22 Patient Identified by Name and Date of : Yes REHABILITATION AND SPORTS THERAPY PHYSICAL THERAPY TREATMENT NOTE ASSESSMENT: Brandon Alfred tolerated the session with fatigue and expected muscle soreness. She demonstrated difficulty with technique with ER and IR, but improved with cues given. The patient will continue to benefit from ongoing skilled physical therapy to progress toward set goals. PLAN FOR NEXT VISIT: continue scapular stabilization strengthening SUBJECTIVE: Pt reports that her neck does not hurt much. Pt reports that her R side of her neck hurts alittle today, not sure if its how she laid last night. Pain: Pain Pain Level: 0 Pain Location: Neck - Left Frequency: ( increases as the day goes on ) Post Treatment Pain Post Treatment Pain Level: 0 Post Treatment Pain Location: Neck - Left OBJECTIVE MEASURES WITH LEVEL OF FUNCTION: TREATMENT: Therapeutic Exercise: 1: seated cervical retraction, ball at posterior occiput of the skull 2x10 2: seated cervical retraction, and rotation R 2x10, ball at occiput 3: seated cervical retraction, and rotation L 2x10, ball at occiput 4: seated cervical retraction, and SB R 2x10, ball at occiput 5: seated cervical retraction, and SB L 2x10, ball at occiput 6: B shoulder AAROM scaption overhead with ball at occiput 2x 15 7: standing scapular retraction mid rows with green theraband 2x12 8: standing scapular retraction mid rows with green theraband 2x12 9: standing YTB ER and IR of each shoulder 2x12 each (verbal and tactile cues for technique) 10: Horizontal abduction with YTB 2x10 11: Seated w's without resistance 2x10 Skilled Intervention: Patient was educated in proper exercise technique and purpose for exercises. Skilled judgment was provided in selection of appropriate interventions. Correct performance of therapeutic exercises was facilitated with verbal, visual, and tactile cuing. Billing Therapeutic Exercise Treatment Minutes: 38 Total Treatment Time Minutes (timed/untimed): 38 Session Start Time : 755 Session Stop Time : 833 ENRICO Gould, PT [facility] 11-02-2022 Note HNO ID: [id number] Author: Katie Leonard, CONOR Service: ? Author Type: Physical Therapist Type: Progress Notes Filed: 11/02/2022 6:21 PM Note Text: Episode Visit Count: 4 Therapist That Will Accept/Oversee The Plan Of Care: Katie Leonard Start of Care Date: 10/14/22 Onset Date: 10/14/21 Plan of Care Certification Date: 10/14/22 Next Certification Due Date: 11/18/22 REHABILITATION AND SPORTS THERAPY PHYSICAL THERAPY TREATMENT NOTE ASSESSMENT: Brandon Alfred tolerated the session with decreased symptoms. She demonstrated difficulty with scapular IR and ER strengthening exercises today due to weakness, but completed without increased neck or shoulder pain. Requires cues to avoid forward head posture or compensatory movement with UE strengthening, but less cues required this visit as compared to previous visits. The patient will continue to benefit from ongoing skilled physical therapy to progress toward set goals. PLAN FOR NEXT VISIT: continue scapular stabilization strengthening SUBJECTIVE: Pt. reports her neck is not hurting very bad. Pain: Pain Pain Level: 3 Pain Location: Neck - Left Description: Aching Frequency: With movement Post Treatment Pain Post Treatment Pain Level: Better Post Treatment Pain Location: Neck - Left OBJECTIVE MEASURES WITH LEVEL OF FUNCTION: TREATMENT: Therapeutic Exercise: 1: seated cervical retraction, ball at posterior occiput of the skull 2x10 2: seated cervical retraction, and rotation R 2x10, ball at occiput 3: seated cervical retraction, and rotation L 2x10, ball at occiput 4: seated cervical retraction, and SB R 2x10, ball at occiput 5: seated cervical retraction, and SB L 2x10, ball at occiput 6: B scapular retraction 2x15 7: B shoulder AAROM scaption overhead with ball at occiput 2x 15 (denies pain in the neck or shoulder) 8: *standing scapular retraction mid rows with green theraband 2x12, once daily 9: *standing B shoulder ext with green theraband 2x12, once daily (cues for technique) 10: standing YTB ER and IR of each shoulder 2x12 each (max cues for technique) 11: *green elastic band issued Skilled Intervention: Patient was educated in proper exercise technique and purpose for exercises. Reviewed and educated patient on additions/changes for home exercise program as above (*). Skilled judgment was provided in selection of appropriate interventions. Provided written instruction for home exercise program to facilitate proper performance and compliance. Correct performance of therapeutic exercises was facilitated with verbal, visual, and tactile cuing. Educated patient on rationale for performing exercises in regards to decreasing fatigue , increase ease of ADL, and ROM and function . Patient education as noted. Billing Therapeutic Exercise Treatment Minutes: 40 Total Treatment Time Minutes (timed/untimed): 40 Session Start Time : 1744 Session Stop Time : 1824 Katie Leonard, PT [facility] 11-01-2022 Miscellaneous Notes Called and left a detailed voicemail notifying patient of providers message. Hospital phone number was left in case patient had any questions. Alexandrea Mendenhall, RN I forgot to say she is to take once day a week- same day each week. Prescription sent. Merced Ag APRN.CNP Spoke with pt and information listed below given. Pt verbalizes understanding. Pt would like to start on Fosamax. Please send to the pharmacy. Nyla Vo LPN Message left for patient to call office back for update. Yoly Casey LPN Bone density testing shows osteoporosis. She should continue to take 1200 mg of calcium and 2000 units of vitamin D daily. Stay active with weight bearing activities such as walking and light weight lifting. Can prescribe medication called fosamax which helps inhibits bone resorption to help with future bone loss. Needs to take first thing in the morning 30 minutes before eating or taking other medications. Take with 6-8 ounces of water and needs to remain upright for 30 minutes after taking. Common side effect can be upset stomach or muscle aches. Low risk of an atypical femur fracture or osteonecrosis of the jaw have been reported but these are rare events. Merced gA APRN.CARLOS documented in this encounter [facility] [place] 10-27-2022 Note HNO ID: [id number] Author: Katie Leonard PT Service: ? Author Type: Physical Therapist Type: Progress Notes Filed: 10/27/2022 8:23 AM Note Text: Episode Visit Count: 3 Therapist That Will Accept/Oversee The Plan Of Care: Katie Leonard Start of Care Date: 10/14/22 Onset Date: 10/14/21 Plan of Care Certification Date: 10/14/22 Next Certification Due Date: 11/18/22 REHABILITATION AND SPORTS THERAPY PHYSICAL THERAPY TREATMENT NOTE ASSESSMENT: Brandon Alfred tolerated the session with expected muscle soreness. She demonstrated improvements in cervical and shoulder pain with postural correction as well as postural stabilization strengthening exercises. The patient will continue to benefit from ongoing skilled physical therapy to progress toward set goals. PLAN FOR NEXT VISIT: assesss compliance and self management of symptoms with HEP SUBJECTIVE: Subjective: Pt. admits to being busy and not having time for the HEP. She feels about the same. Pain: Pain Pain Level: 5 Pain Location: Neck - Left Description: Aching Frequency: With movement Post Treatment Pain Post Treatment Pain Level: 0 Post Treatment Pain Location: Neck - Left OBJECTIVE MEASURES WITH LEVEL OF FUNCTION: TREATMENT: Therapeutic Exercise: 1: supine cervical retraction, towel roll at posterior occiput of the skull 2x10 2: seated cervical retraction 2x10 with ball at posterior occiput (improved technique as opposed to verbal cues and mirror) 3: seated cervical retraction and nose wiggle self over pressure, ball at posterior occiput 2x10 (denies pain following this exercise) 4: scapular retractions with ball at posterior occiput to avoid forward head movement 2x15 5: seated thoracic extension over chair back 3x10 6: B scapular retraction 2x15 7: cervical rotation snag with towel 2x10 with rotation left, once a day 8: standing scapular retraction with yellow theraband 2x15 (cues to avoid head movement, and for correct technique) 9: standing B shoulder ext with yellow theraband 2x15 (cues for technique) Skilled Intervention: Patient was educated in proper exercise technique and purpose for exercises. Skilled judgment was provided in selection of appropriate interventions. Provided written instruction for home exercise program to facilitate proper performance and compliance. Correct performance of therapeutic exercises was facilitated with verbal, visual, and tactile cuing. Educated patient on rationale for performing exercises in regards to decreasing fatigue , increase ease of ADL, and ROM and function . Patient education as noted. Self-Nursing Home Management: 1: *discussed and hand out provided regarding desk top ergonomics 2: *discussed doing at least a few sets of a few exercises for some relief if pt. does not have time to complete HEP. This is better than not self managing the symptoms. Explained that pt. may self manage her symtpoms based on consistent symptom resolution within a few HEP exercises demosntrated during PT visits. Skilled Intervention: Skilled judgment in the selection of proper modification for activity of daily living/home management based on clinical presentation, deficits, and needs. Provided written instruction for activities of daily living techniques to facilitate proper performance and compliance. Reviewed patient specific diagnosis in relation to activities of daily living/home management. Activity progression based on professional judgement. Moderate verbal cues for maintaining neutral spine alignment. Reviewed and educated patient on additions/changes for home program as noted above with an (*). Provided written instruction for home program to facilitate proper performance and compliance. Correct performance of home program was facilitated with verbal, visual, and tactile cueing. Billing Therapeutic Exercise Treatment Minutes: 35 Self-Care/Home Management Treatment Minutes: 5 Total Treatment Time Minutes (timed/untimed): 40 Session Start Time : 744 Session Stop Time : 824 Katie Leonard, PT [facility] 10-27-2022 History of Present illness Narrative Episode Visit Count: 3 Therapist That Will Accept/Oversee The Plan Of Care: Katie Leonard Start of Care Date: 10/14/22 Onset Date: 10/14/21 Plan of Care Certification Date: 10/14/22 Next Certification Due Date: 11/18/22 REHABILITATION AND SPORTS THERAPY PHYSICAL THERAPY TREATMENT NOTE ASSESSMENT: Brandon Alfred tolerated the session with expected muscle soreness. She demonstrated improvements in cervical and shoulder pain with postural correction as well as postural stabilization strengthening exercises. The patient will continue to benefit from ongoing skilled physical therapy to progress toward set goals. PLAN FOR NEXT VISIT: assesss compliance and self management of symptoms with HEP SUBJECTIVE: Subjective: Pt. admits to being busy and not having time for the HEP. She feels about the same. Pain: Pain Pain Level: 5 Pain Location: Neck - Left Description: Aching Frequency: With movement Post Treatment Pain Post Treatment Pain Level: 0 Post Treatment Pain Location: Neck - Left OBJECTIVE MEASURES WITH LEVEL OF FUNCTION: TREATMENT: Therapeutic Exercise: 1: supine cervical retraction, towel roll at posterior occiput of the skull 2x10 2: seated cervical retraction 2x10 with ball at posterior occiput (improved technique as opposed to verbal cues and mirror) 3: seated cervical retraction and nose wiggle self over pressure, ball at posterior occiput 2x10 (denies pain following this exercise) 4: scapular retractions with ball at posterior occiput to avoid forward head movement 2x15 5: seated thoracic extension over chair back 3x10 6: B scapular retraction 2x15 7: cervical rotation snag with towel 2x10 with rotation left, once a day 8: standing scapular retraction with yellow theraband 2x15 (cues to avoid head movement, and for correct technique) 9: standing B shoulder ext with yellow theraband 2x15 (cues for technique) Skilled Intervention: Patient was educated in proper exercise technique and purpose for exercises. Skilled judgment was provided in selection of appropriate interventions. Provided written instruction for home exercise program to facilitate proper performance and compliance. Correct performance of therapeutic exercises was facilitated with verbal, visual, and tactile cuing. Educated patient on rationale for performing exercises in regards to decreasing fatigue , increase ease of ADL, and ROM and function . Patient education as noted. Self-Nursing Home Management: 1: *discussed and hand out provided regarding desk top ergonomics 2: *discussed doing at least a few sets of a few exercises for some relief if pt. does not have time to complete HEP. This is better than not self managing the symptoms. Explained that pt. may self manage her symtpoms based on consistent symptom resolution within a few HEP exercises demosntrated during PT visits. Skilled Intervention: Skilled judgment in the selection of proper modification for activity of daily living/home management based on clinical presentation, deficits, and needs. Provided written instruction for activities of daily living techniques to facilitate proper performance and compliance. Reviewed patient specific diagnosis in relation to activities of daily living/home management. Activity progression based on professional judgement. Moderate verbal cues for maintaining neutral spine alignment. Reviewed and educated patient on additions/changes for home program as noted above with an (*). Provided written instruction for home program to facilitate proper performance and compliance. Correct performance of home program was facilitated with verbal, visual, and tactile cueing. Billing Therapeutic Exercise Treatment Minutes: 35 Self-Care/Home Management Treatment Minutes: 5 Total Treatment Time Minutes (timed/untimed): 40 Session Start Time : 744 Session Stop Time : 824 Katie Leonard PT documented in this encounter [facility] [place] 10-26-2022 Note HNO ID: [id number] Author: Binh Zuñiga RT(R) Service: ? Author Type: Technologist Type: Progress Notes Filed: 10/26/2022 2:52 PM Note Text: Radiology Service Progress Note PATIENT NAME: Bradnon Alfred DATE OF SERVICE: October 26, 2022 TIME: 2:42 PM PATIENT IDENTITY VERIFICATION COMPLETED USING TWO (2) IDENTIFIERS: Name and Date of confirmed by patient verbally. FALL SCREENING: Has the patient had 2 falls in the last year or 1 fall with injury or currently using an Ambulatory Assistive Device (Walker, Cane, Wheelchair, Crutches, etc.)? No PATIENT GENDER DATA: Female. status: : No status: NO. PATIENT RELEVANT IMPLANT DATA REVIEWED: Not Applicable RADIOLOGY DEPARTMENT: Bone Density PERIPHERAL IV DATA: Not applicable SIGNED BY: RT Olga Lidia(R) October 26, 2022 2:42 PM [facility] 10-26-2022 History of Present illness Narrative Radiology Service Progress Note PATIENT NAME: Brandon Alfred DATE OF SERVICE: October 26, 2022 TIME: 2:42 PM PATIENT IDENTITY VERIFICATION COMPLETED USING TWO (2) IDENTIFIERS: Name and Date of confirmed by patient verbally. FALL SCREENING: Has the patient had 2 falls in the last year or 1 fall with injury or currently using an Ambulatory Assistive Device (Walker, Cane, Wheelchair, Crutches, etc.)? No PATIENT GENDER DATA: Female. status: : No status: NO. PATIENT RELEVANT IMPLANT DATA REVIEWED: Not Applicable RADIOLOGY DEPARTMENT: Bone Density PERIPHERAL IV DATA: Not applicable SIGNED BY: RT Olga Lidia(R) October 26, 2022 2:42 PM documented in this encounter [facility] [place] 10-25-2022 Note HNO ID: [id number] Author: Katie Leonard, PT Service: ? Author Type: Physical Therapist Type: Progress Notes Filed: 10/25/2022 8:41 AM Note Text: Episode Visit Count: 2 Therapist That Will Accept/Oversee The Plan Of Care: Katie Leonard Start of Care Date: 10/14/22 Onset Date: 10/14/21 Plan of Care Certification Date: 10/14/22 Next Certification Due Date: 11/18/22 REHABILITATION AND SPORTS THERAPY PHYSICAL THERAPY TREATMENT NOTE ASSESSMENT: Brandon Alfred tolerated the session with decreased symptoms. She demonstrated difficulty with supine cervical retraction HEP exercise, requiring maximum progressing to minimal tactile cues for correct technique, symptoms centralized to the midline of the cervical spine. . The patient will continue to benefit from ongoing skilled physical therapy to progress toward set goals. PLAN FOR NEXT VISIT: consider manual traction. add scapular stabilization with elastic theraband to HEP SUBJECTIVE: Patient Reason for Visit: It's about the same. Pt. points to the left superior scapula and to the acromion. Pain: Pain Pain Level: 5 Pain Location: Neck - Left Description: Burning Frequency: With movement Post Treatment Pain Post Treatment Pain Level: 0 Post Treatment Pain Location: Neck - Left OBJECTIVE MEASURES WITH LEVEL OF FUNCTION: TREATMENT: Therapeutic Exercise: 1: supine cervical retraction 3x10, maximum progressing to minimal tactile cues for correct technique, symptoms centralized to the midline of the cervical spine. (symptoms reduced to 3/10) 2: seated cervical retraction 1x10, without mirror ( just feels like tightness. ) 3: seated cervical retraction 2x10 with mirror visual assist 4: seated cervical retraction with rotation L 2x5 5: seated cervical retraction extension 2x10 6: *B scapular retraction 2x15, 3x a day 7: *cervical rotation snag with towel 2x10 with rotation left, once a day 8: standing scapular retraction with yellow theraband 2x15 9: standing B shoulder ext with yellow theraband 2x15 Skilled Intervention: Patient was educated in proper exercise technique and purpose for exercises. Reviewed and educated patient on additions/changes for home exercise program as above (*). Skilled judgment was provided in selection of appropriate interventions. Provided written instruction for home exercise program to facilitate proper performance and compliance. Correct performance of therapeutic exercises was facilitated with verbal, visual, and tactile cuing. Educated patient on rationale for performing exercises in regards to decreasing fatigue , increase ease of ADL, and ROM and function . Patient education as noted. Self-Nursing Home Management: 1: *discussed biomechanics of a cervical retraction and reasoning for using it as treatment 2: *discussed correct posture, external auditory canal in line above the shoulder 3: *discussed centralization of symptoms with repeated cervical movement as a desired symptom response Skilled Intervention: Skilled judgment in the selection of proper modification for activity of daily living/home management based on clinical presentation, deficits, and needs. Provided written instruction for activities of daily living techniques to facilitate proper performance and compliance. Reviewed patient specific diagnosis in relation to activities of daily living/home management. Activity progression based on professional judgement. Moderate verbal cues for maintaining neutral spine alignment. Reviewed and educated patient on additions/changes for home program as noted above with an (*). Provided written instruction for home program to facilitate proper performance and compliance. Billing Therapeutic Exercise Treatment Minutes: 35 Self-Care/Home Management Treatment Minutes: 5 Total Treatment Time Minutes (timed/untimed): 40 Session Start Time : 0800 Session Stop Time : 0840 Katie Leonard PT [facility] 10-14-2022 Note HNO ID: [id number] Author: Katie Leonard PT Service: ? Author Type: Physical Therapist Type: Progress Notes Filed: 10/14/2022 8:23 AM Note Text: Episode Visit Count: 1 Therapist That Will Accept/Oversee The Plan Of Care: Katie Leonard Start of Care Date: 10/14/22 Onset Date: 10/14/21 Plan of Care Certification Date: 10/14/22 Next Certification Due Date: 11/18/22 Patient Identified by Name and Date of : Yes REHABILITATION AND SPORTS THERAPY PHYSICAL THERAPY EVALUATION PLAN OF CARE: Assessment: Brandon Alfred presents with diagnosis of neck pain on the left side, numbness and tingling in both hands that interferes with reaching overhead (turning L, typing) . She presents with impairments in ADL's, independence in exercise, joint mobility, overall function, patient reported outcome measures, posture, range of motion, strength, stress management, symptom management, and tissue tenderness. PROMIS? (Patient-Reported Outcomes Measurement Information System) scores were reviewed and physical function domain and self efficacy domain identified as a rehabilitation concern. Prognosis for therapy is Good due to: current objective clinical presentation, good overall health status, good support system/ coping skills, within-session changes . She will benefit from skilled therapy services to meet the goals established for this plan of care as noted below. Goals for Episode of Care: created on 10/14/22 through 11/25/22 Independent in a Home Exercise Program. Patient will decrease pain to 1-2/10 with functional activities to allow patient to improve tolerance for ADLs. Restore pain free cervical ROM to minimal to no limitation grossly to allow for functional movements. Drive with no aggravation of pain/symptoms. Sleep throughout the night without pain/symptoms. Maintain proper sitting posture throughout the session to allow for reduced symptoms with ADLs. Patient Goals: reduce neck/LUE pain with work and ADLs Planned Interventions, Frequency, and Duration: Current Frequency: 2x/week Duration: 6 weeks Total Number of Visits Planned: 12 Planned Treatment Interventions: Therapeutic exercise (05088), Neuromuscular re-education (79193), Manual therapy (82604), Therapeutic activities (08133), Self-custodial management (75868), Patient/Family/Caregiver Education PLAN FOR NEXT VISIT: assess symptom response to repeated cervical retraction Patient demonstrates good understanding of plan of care and treatment. The above goals and plan of care were discussed and agreed upon by patient/family. SUBJECTIVE: Brandon Alfred is a 67 year old female seen today for chronic left side neck pain that onset a year ago and became worse over the past 2 months. Pt. decribes symptoms as a burning sensation along the posterolateral neck and L shoulder. Pt. reports chronic numbness of both arms that onset prior to neck pain. 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 Cervical Arterial Dysfunction Clinical Reasoning: No identified risk factors Cervical Myelopathy: Age > 45 yo Cervical Myelopathy Diagnostic Rule: Proceed with caution Red Flags - Cervical Cancer Red Flags: Age >50 or <20 Cancer Clinical Reasoning: Proceed with caution Infection Clinical Reasoning: No identified risk factors. Cervical Arterial Dysfunction Clinical Reasoning: No identified risk factors Cervical Myelopathy: Age > 45 yo Cervical Myelopathy Diagnostic Rule: Proceed with caution Spine History Symptoms Since Onset: Worsening Pain is Worse Always: As the day progresses (rotation) Pain is Better Always: Rest Pain: Pain Pain Level: 5 Pain Location: Neck - Left Description: Burning Frequency: With movement Post Treatment Pain Post Treatment Pain Level: 0 Post Treatment Pain Location: Neck - Left Post Treatment Symptoms: It feels pretty good right now. PROMIS Scales Higher is Better 10/12/2022 Phys Func - Score 45 (within normal limits) Phys Func - Percentile 31 % Self-Eff Symptom - Score 50 (Average) Self-Eff Symptom - Percentile 50 % T-scores: mean of general population = 50. 5 points is clinically meaningfully difference Percentiles provide an indication of how the patient's score ranks in r (more content not included)... [facility] 10-12-2022 Miscellaneous Notes Medication sent- take one tablet at bedtime. Recheck labs in 3 months. Merced Ag APRN.CARLOS Spoke with pt and information listed below given. Pt verbalizes understanding. Okay per pt to send in medication to lower cholesterol. Pharmacy updated. Nyla Vo LPN Message left for patient to return call so that labs and recommendations can be reviewed with her. Please call patient and let her know her stool is negative for blood. Based on her age, race, gender, blood pressure, and cholesterol,her 10 year risk for having a cardiovascular event such as a stroke or heart attack is 9.2 %. Current guidelines suggest lipid lowering medication at a risk of 7.5%. If she is agreeable will send medication for cholesterol lowering medication. Most common side effect is muscle aches. Also recommend lower saturated fat diet along with 150 minutes of exercise per week. The rest of her blood work is in acceptable ranges. Merced Ag APRN.SENIOR [employer] CONSULTANT FOR REFERENCE ONLY The 10-year ASCVD risk score (Elle CHANDRA, et al., 2019) is: 9.2% Values used to calculate the score: Age: 67 years Sex: Female Is Non- : No Diabetic: No Tobacco smoker: No Systolic Blood Pressure: 138 mmHg Is BP treated: Yes HDL Cholesterol: 64 mg/dL Total Cholesterol: 206 mg/dL documented in this encounter [facility] [place] 10-10-2022 Miscellaneous Notes Notified via [employer]. Jess Redd Ma documented in this encounter [facility] [place] 10-04-2022 Miscellaneous Notes Detailed message left on patients secure VM regarding provider's message/order. Patient telephoned. No option to leave message. Just rings and then eventually hangs up. Try back later. Yoly Casey LPN Forget to tell patient I wanted a chest xray to. Please let her know to come back at her convenience to complete. Merced Ag APRN.CARLOS documented in this encounter [facility] [place] 10-04-2022 Note HNO ID: [id number] Author: Merced Ag APRN.CARLOS Service: ? Author Type: Nurse Practitioner Type: Progress Notes Filed: 10/04/2022 9:38 AM Note Text: Echo 10/04/2022 Patient presents with: Recheck: Needs to be seen for refills SUBJECTIVE: This is a 67 year old that is here today for Above Complaints. Since last office visit has been in good health without ER visits or hospitalizations. Recently at [facility] due to neck pain. Will be going to PT. Also had complained of SOB. Patient thinks maybe due to pain as she notices it the most then- admits it can be exertional at times. Able to walk full flight of steps without SOB. Denies dyspnea, wheezing, cough,orthopnea, lightheadedness, dizziness, jaw pain, back pain, chest pain, palpitations, or leg swelling HTN: Patient is compliant with meds No Monitors bp at home: No. Denies side effects: Yes. Chest pain: No. Dyspnea: Yes. Edema: a little bit since startingher hormone therapy . Palpitations: No. Syncope: Yes. Headache: No. Dizziness: No. GERD: taking pantoprazole as prescribed. Works well to control symptoms Depression: taking Wellbutrin and Prozac as prescribed without side effects. Works well to control symptoms. Denies depressive symptoms, SI or HI PAST MEDICAL HISTORY Diagnosis Date Back pain Depression Endometriosis GERD (gastroesophageal reflux disease) Hypertension Obesity (BMI 30.0-34.9) Osteopenia Other abnormal heart sounds rheumatic fever ALLERGIES Patient has no known allergies. MEDICATIONS Current Outpatient Medications Medication Sig Ascorbic Acid (VITAMIN C) 1,000 mg tablet Take 1,000 mg by mouth once daily. calcium carbonate/vitamin D3 (CALCIUM 600 + D ORAL) Take by mouth once daily. Biotin 10,000 mcg cap Take by mouth once daily. predniSONE (DELTASONE) 20 mg tablet Take 1 tablet by mouth once daily for 5 days. Take daily with food. FLUoxetine (PROZAC) 40 mg capsule Take 1 capsule by mouth once daily. pantoprazole DR (PROTONIX) 20 mg tablet Take 1 tablet by mouth once daily. hydroCHLOROthiazide 25 mg tablet Take 1 tablet by mouth once daily. buPROPion XL (WELLBUTRIN XL) 150 mg 24 hr tablet Take 1 tablet by mouth once daily. meloxicam (MOBIC) 7.5 mg tablet TAKE ONE TABLET BY MOUTH EVERY DAY NEEDED WITH FOOD. felodipine ER (PLENDIL) 10 mg 24 hr tablet Take 1 tablet by mouth once daily. Cholecalciferol, Vitamin D3, 2,000 unit cap Take 1 tablet by mouth once daily. magnesium oxide 400 mg cap Take 3 capsules by mouth once daily. Aspirin 81 mg Tab Take 81 mg by mouth once daily. Lactobacillus acidophilus (BACID) cap Take 1 capsule by mouth once daily. MULTIVITAMIN TAB Take 2 tablets daily. Estradiol (ESTRACE) 0.5 mg tablet TAKE 1 TABLET BY MOUTH ONCE DAILY (Patient not taking: Reported on 10/04/2022) No current facility-administered medications for this visit. Medications and allergies reviewed by this provider. SOCIAL HISTORY Social History Tobacco Use Smoking status: Never Smokeless tobacco: Never Vaping Use Vaping Use: Never used Substance Use Topics Alcohol use: No Drug use: No REVIEW OF SYSTEMS All other reviewed and negative other than HPI. OBJECTIVE: BP 138/78 Pulse 66 Resp 16 Wt 67.7 kg (149 lb 3.2 oz) SpO2 97% BMI 28.54 kg/m? . Vital signs reviewed by this provider. APPEARANCE Well appearing, alert, in no acute distress, well-hydrated, well nourished. EYES conjunctiva and sclera normal. EARS External ears normal, canals clear NECK Supple, no adenopathy; thyroid symmetric, normal size, no bruits HEART RRR with normal S1 and S2, no murmurs, no gallops, no JVD appreciated LUNG clear to auscultation. No wheezes, rhonchi or rales EXTREMITIES Extremities normal, No deformities, No skin discoloration, No edema, and Normal pulses bilaterally. SKIN Skin color, texture, turgor normal, no suspicious rashes or lesions to exposes skin COVID-19 VACCINE(1) Never done BP CONTROLLED (<130/80) Never done SHINGRIX VACCINE(1 of 2) Never done COLORECTAL CANCER SCREENING due on 04/15/2021 BONE DENSITY due on 2021 PNEUMOCOCCAL: 65+(2 - PCV) due on 2021 ADVANCE DIRECTIVE DISCUSSION Never done MAMMOGRAM due on 04/06/2022 INFLUENZA(1) due on 11/25/2022 ANNUAL PCP TEAM CHRONIC DISEASE VISIT due on 10/05/2023 DIABETES SCREEN due on 03/12/2024 LIPID SCREEN due on 01/23/2026 DTAP,TDAP,TD(3 - Td or Tdap) due on 05/28/2027 HEPATITIS C SCREENING Completed PAP TESTING Discontinued ASSESSMENT/PLAN: 1. Essential hypertension - ICD9: 401.9, ICD10: I10 (primary diagnosis) - Controlled - Continue current medications - Recommend home blood pressure monitoring, to bring results to next visit - Encouraged sodium restriction, DASH or Mediterranean diet - Recommend regular aerobic exercise - Follow up in 6 months for hypertension visit - COMP METABOLIC PANEL - FELODIPINE ER 10 MG TABLET,EXTENDED RELEASE 2 (more content not included)... [facility] 09-30-2022 Note HNO ID: [id number] Author: Maximus Burns MD Service: ? Author Type: Physician Type: Progress Notes Filed: 09/30/2022 11:31 AM Note Text: Patient presents with: Neck Pain: Neck and shoulder pain x 2 weeks and SOB x 1 week HPI: Left neck pain: Duration: 2 weeks Location: left neck and shoulder Character: burning neck and shoulder, shoulders ache. Not worsening or improving. Radiation: L>R arms to the fingers with tingling Aggravating: left rotation Relieving: biofreeze Pain relievers: Tylenol, routine meloxicam Associated: tingling, feels dyspnea on exertion this week, fatigue, maybe some leg edema, had a fall and neck injury a few years ago Pertinent negatives: Denies weakness, recent injury, fever, chest pain, palpitations, dizziness/syncope, cough FHx of CAD/stroke. PAST MEDICAL HISTORY Diagnosis Date Back pain Depression Endometriosis GERD (gastroesophageal reflux disease) Hypertension Obesity (BMI 30.0-34.9) Osteopenia Other abnormal heart sounds rheumatic fever ACTIVE PROBLEM LIST Internal Hemorrhoids Without Mention of Complication Other Abnormal Heart Sounds Adjustment Disorder With Depressed Mood Other Specific Muscle Disorders Essential Hypertension Carpal Tunnel Syndrome Lateral Epicondylitis of Elbow Osteopenia Gerd (Gastroesophageal Reflux Disease) Postmenopausal Hrt (Hormone Replacement Therapy) Obesity (Bmi 30.0-34.9) Depression MEDICATIONS: FLUoxetine (PROZAC) 40 mg capsule Take 1 capsule by mouth once daily. pantoprazole DR (PROTONIX) 20 mg tablet Take 1 tablet by mouth once daily. hydroCHLOROthiazide 25 mg tablet Take 1 tablet by mouth once daily. buPROPion XL (WELLBUTRIN XL) 150 mg 24 hr tablet Take 1 tablet by mouth once daily. Estradiol (ESTRACE) 0.5 mg tablet TAKE 1 TABLET BY MOUTH ONCE DAILY meloxicam (MOBIC) 7.5 mg tablet TAKE ONE TABLET BY MOUTH EVERY DAY NEEDED WITH FOOD. felodipine ER (PLENDIL) 10 mg 24 hr tablet Take 1 tablet by mouth once daily. Cholecalciferol, Vitamin D3, 2,000 unit cap Take 1 tablet by mouth once daily. magnesium oxide 400 mg cap Take 3 capsules by mouth once daily. Aspirin 81 mg Tab Take 81 mg by mouth once daily. Lactobacillus acidophilus (BACID) cap Take 1 capsule by mouth once daily. MULTIVITAMIN TAB Take 2 tablets daily. ALLERGIES: ALLERGIES No Known Allergies VITALS: BP 110/64 Pulse 64 Temp 36.7 ?C (98 ?F) (Tympanic) Resp 18 Wt 67 kg (147 lb 9.6 oz) SpO2 96% BMI 28.23 kg/m? PHYSICAL EXAM: GEN: pleasant, no acute distress, alert HEENT: PERRL, EOMI, MMM NECK: no lymphadenopathy, no thyromegaly. No midline or right paraspinal tenderness, left paraspinal tenderness. Moderate decreased ROM in all directions. Pain with left rotation, right rotation increases shoulder burning. HEART: regular rate, regular rhythm, no murmurs LUNGS: clear to auscultation, no wheezes or crackles, no increased WOB ABD: soft, non-distended, no masses palpated, non-tender EXT: no clubbing, no cyanosis, no edema SHOULDERS: no pain with palpation or ROM. ASSESSMENT/PLAN: 1. Neck pain on left side - ICD9: 723.1, ICD10: M54.2 (primary diagnosis) 2. Numbness and tingling in both hands - ICD9: 782.0, ICD10: R20.0, R20.2 Mechanical neck pain with nerve impingement symptoms. Continue acetaminophen and meloxicam. - PREDNISONE 20 MG TABLET short burst. - CONSULT TO PHYSICAL THERAPY - she may wait to schedule. 3. SOB (shortness of breath) - ICD9: 786.05, ICD10: R06.02 Seems unrelated to neck pain. She has follow up with her PCP next week and will discuss it further then. Follow up in the ER with worsening or concerning symptoms. Maximus Burns MD [facility] 09-30-2022 History of Present illness Narrative Patient presents with: Neck Pain: Neck and shoulder pain x 2 weeks and SOB x 1 week HPI: Left neck pain: Duration: 2 weeks Location: left neck and shoulder Character: burning neck and shoulder, shoulders ache. Not worsening or improving. Radiation: L>R arms to the fingers with tingling Aggravating: left rotation Relieving: biofreeze Pain relievers: Tylenol, routine meloxicam Associated: tingling, feels dyspnea on exertion this week, fatigue, maybe some leg edema, had a fall and neck injury a few years ago Pertinent negatives: Denies weakness, recent injury, fever, chest pain, palpitations, dizziness/syncope, cough FHx of CAD/stroke. PAST MEDICAL HISTORY Diagnosis Date Back pain Depression Endometriosis GERD (gastroesophageal reflux disease) Hypertension Obesity (BMI 30.0-34.9) Osteopenia Other abnormal heart sounds rheumatic fever ACTIVE PROBLEM LIST Internal Hemorrhoids Without Mention of Complication Other Abnormal Heart Sounds Adjustment Disorder With Depressed Mood Other Specific Muscle Disorders Essential Hypertension Carpal Tunnel Syndrome Lateral Epicondylitis of Elbow Osteopenia Gerd (Gastroesophageal Reflux Disease) Postmenopausal Hrt (Hormone Replacement Therapy) Obesity (Bmi 30.0-34.9) Depression MEDICATIONS: FLUoxetine (PROZAC) 40 mg capsule Take 1 capsule by mouth once daily. pantoprazole DR (PROTONIX) 20 mg tablet Take 1 tablet by mouth once daily. hydroCHLOROthiazide 25 mg tablet Take 1 tablet by mouth once daily. buPROPion XL (WELLBUTRIN XL) 150 mg 24 hr tablet Take 1 tablet by mouth once daily. Estradiol (ESTRACE) 0.5 mg tablet TAKE 1 TABLET BY MOUTH ONCE DAILY meloxicam (MOBIC) 7.5 mg tablet TAKE ONE TABLET BY MOUTH EVERY DAY NEEDED WITH FOOD. felodipine ER (PLENDIL) 10 mg 24 hr tablet Take 1 tablet by mouth once daily. Cholecalciferol, Vitamin D3, 2,000 unit cap Take 1 tablet by mouth once daily. magnesium oxide 400 mg cap Take 3 capsules by mouth once daily. Aspirin 81 mg Tab Take 81 mg by mouth once daily. Lactobacillus acidophilus (BACID) cap Take 1 capsule by mouth once daily. MULTIVITAMIN TAB Take 2 tablets daily. ALLERGIES: ALLERGIES No Known Allergies VITALS: BP 110/64 Pulse 64 Temp 36.7 C (98 F) (Tympanic) Resp 18 Wt 67 kg (147 lb 9.6 oz) SpO2 96% BMI 28.23 kg/m PHYSICAL EXAM: GEN: pleasant, no acute distress, alert HEENT: PERRL, EOMI, MMM NECK: no lymphadenopathy, no thyromegaly. No midline or right paraspinal tenderness, left paraspinal tenderness. Moderate decreased ROM in all directions. Pain with left rotation, right rotation increases shoulder burning. HEART: regular rate, regular rhythm, no murmurs LUNGS: clear to auscultation, no wheezes or crackles, no increased WOB ABD: soft, non-distended, no masses palpated, non-tender EXT: no clubbing, no cyanosis, no edema SHOULDERS: no pain with palpation or ROM. ASSESSMENT/PLAN: 1. Neck pain on left side - ICD9: 723.1, ICD10: M54.2 (primary diagnosis) 2. Numbness and tingling in both hands - ICD9: 782.0, ICD10: R20.0, R20.2 Mechanical neck pain with nerve impingement symptoms. Continue acetaminophen and meloxicam. - PREDNISONE 20 MG TABLET short burst. - CONSULT TO PHYSICAL THERAPY - she may wait to schedule. 3. SOB (shortness of breath) - ICD9: 786.05, ICD10: R06.02 Seems unrelated to neck pain. She has follow up with her PCP next week and will discuss it further then. Follow up in the ER with worsening or concerning symptoms. Maximus Burns MD documented in this encounter [facility] 09-13-2022 Miscellaneous Notes Left a message for pt to call the office and ask to speak to a nurse. Nyla Vo LPN Due for routine follow up. Recommend OV in 1-2 months. Will send 90 day rx. Patient phones requesting refills as follows: Requested Prescriptions Pending Prescriptions Disp Refills FLUoxetine (PROZAC) 40 mg capsule 90 capsule 1 Sig: Take 1 capsule by mouth once daily. pantoprazole DR (PROTONIX) 20 mg tablet 90 tablet 1 Sig: Take 1 tablet by mouth once daily. hydroCHLOROthiazide 25 mg tablet 90 tablet 1 Sig: Take 1 tablet by mouth once daily. buPROPion XL (WELLBUTRIN XL) 150 mg 24 hr tablet 90 tablet 1 Sig: Take 1 tablet by mouth once daily. MINNIE 01/01/2022 No upcoming appointment scheduled Please review and advise. Yoly Casey LPN documented in this encounter [facility] 05-11-2022 Note Patient Outreach (IN TMMN) BRANDON ALFRED ([id number]) 1955 F Date Time Provider Department 05/11/22 STACIE PERDUE During your visit today, we recorded the following information about you: Allergies As of Date: 05/11/2022 (No Known Allergies) Date Reviewed: 01/04/2022 Reviewed by: Madeleine Salgado - Fully Assessed Visit Diagnosis:Encounter for screening mammogram for breast cancer [Z12.31] Order(s):[facility] SCREENING [[id number]] Order #: [id number] FUTURE Prescriptions as of 05/16/2022 - Estradiol (ESTRACE) 0.5 mg tablet TAKE 1 TABLET BY MOUTH ONCE DAILY - FLUoxetine (PROZAC) 40 mg capsule Take 1 capsule by mouth once daily. - pantoprazole DR (PROTONIX) 20 mg tablet Take 1 tablet by mouth once daily. - meloxicam (MOBIC) 7.5 mg tablet TAKE ONE TABLET BY MOUTH EVERY DAY NEEDED WITH FOOD. - felodipine ER (PLENDIL) 10 mg 24 hr tablet Take 1 tablet by mouth once daily. - hydroCHLOROthiazide (HYDRODIURIL, ESIDRIX) 25 mg tablet Take 1 tablet by mouth once daily. - buPROPion XL (WELLBUTRIN XL) 150 mg 24 hr tablet Take 1 tablet by mouth once daily. - Cholecalciferol, Vitamin D3, 2,000 unit cap Take 1 tablet by mouth once daily. - magnesium oxide 400 mg cap Take 3 capsules by mouth once daily. - Aspirin 81 mg Tab Take 81 mg by mouth once daily. - Lactobacillus acidophilus (BACID) cap Take 1 capsule by mouth once daily. - MULTIVITAMIN TAB Take 2 tablets daily. Problem List As Of Date 05/11/2022 Noted Resolved INT HEMORRHOID W/O COMPL [K64.8] ABNORM HEART SOUNDS NEC [R01.2] ADJUSTMENT DISORDER WITH DEPRESSED MOOD [F43.21]01/07/2006 PAIN ABDOMEN( Other Specific Site or) [R10.9] 01/07/2006 07/30/2014 ELEV BL PRES W/O HYPERTN [R03.0] 03/29/2006 04/02/2007 MUSCLE DISORDERS NEC [M62.89] 09/12/2006 Essential hypertension [I10] 04/02/2007 CARPAL TUNNEL SYNDROME [G56.00] 04/02/2007 Pain in limb [M79.609] 06/15/2007 07/30/2014 PAIN BACK, LOW [M54.50] 05/13/2008 07/30/2014 Other malaise and fatigue [R53.81, R53.83] 09/09/2008 07/30/2014 LATERAL EPICONDYLITIS [M77.10] 10/21/2008 Overweight(278.02) [E66.3] 10/07/2009 07/30/2014 Symptomatic menopausal or female climacteric st*12/21/2009 07/30/2014 Osteopenia [M85.80] 04/11/2012 GERD (gastroesophageal reflux disease) [K21.9] Endometriosis [N80.9] 07/30/2014 Special screening for malignant neoplasm of col*04/15/2016 05/05/2016 Postmenopausal HRT (hormone replacement therapy*05/05/2016 Obesity (BMI 30.0-34.9) [E66.9] Depression [F32.A] Encounter Status:Closed by MEME PRODUSER on 05/16/22 [facility] 05-11-2022 Miscellaneous Notes Patient has been identified by name and date of : Yes Requested Prescriptions Pending Prescriptions Disp Refills Estradiol (ESTRACE) 0.5 mg tablet [Pharmacy Med Name: ESTRADIOL 0.5 MG TABLET] 60 tablet 5 Sig: TAKE 1 TABLET BY MOUTH ONCE DAILY RX INSTRUCTIONS: Pharmacy initiated this request. No need to notify patient. 01/01/22 No follow up scheduled. Sandra Trujillo LPN documented in this encounter [facility] 03-03-2022 Miscellaneous Notes Patient phones requesting refills as follows: Requested Prescriptions Pending Prescriptions Disp Refills FLUoxetine (PROZAC) 40 mg capsule 90 capsule 3 Sig: Take 1 capsule by mouth once daily. pantoprazole DR (PROTONIX) 20 mg tablet 90 tablet 3 Sig: Take 1 tablet by mouth once daily. meloxicam (MOBIC) 7.5 mg tablet 90 tablet 3 Sig: TAKE ONE TABLET BY MOUTH EVERY DAY NEEDED WITH FOOD. felodipine ER (PLENDIL) 10 mg 24 hr tablet 90 tablet 3 Sig: Take 1 tablet by mouth once daily. hydroCHLOROthiazide (HYDRODIURIL, ESIDRIX) 25 mg tablet 90 tablet 3 Sig: Take 1 tablet by mouth once daily. Estradiol (ESTRACE) 0.5 mg tablet 90 tablet 0 Sig: Take 1 tablet by mouth once daily. buPROPion XL (WELLBUTRIN XL) 150 mg 24 hr tablet 90 tablet 1 Sig: Take 1 tablet by mouth once daily. MINNIE 01/01/22 NOV no upcoming appt noted Please review and advise. Marion Reyna LPN documented in this encounter [facility] [place] 01-04-2022 History of Present illness Narrative This consult is seen at the kind request of Dr. Stacie Perdue of family medicine, and my final recommendations will be communicated to the requesting health care provider by way of shared electronic medical record. This note is formatted with the impression and plan first and the history and physical to follow. IMPRESSION 66-year-old female with xerostomia. RECOMMENDATION/PLAN I discussed with the patient regarding potential differential diagnosis including seronegative Sjogren's syndrome versus medication side effect. Given that her xerostomia started after she started taking Wellbutrin, I suspect this could be medication side effect. While Salagen is a treatment option for patient with xerostomia in the setting of Sjogren's syndrome or postradiation xerostomia, her testing for Sjogren's syndrome has been negative. Therefore, I would not recommend starting her on this medication. Consider adjusting antidepressant to see if her symptoms will resolve. If patient continues to have dry mouth, consider referral to rheumatology. In the meantime, the only treatment option at this time for her dry mouth is increased hydration. Chief Complaint Dry mouth History of Present Illness Brandon Alfred is a 66 year old female presents for evaluation of dry mouth. Patient stated that for the last year, she has been experiencing dry mouth. This all started after she was put on Wellbutrin. Patient had a subsequent rheumatological work-up including LYNSEY, rheumatoid factor, sed rate, TSH, CRP, and her SSA and anti-SSB antibody all of which came back normal. Patient denies any difficulty with swallowing or pain with swallowing. She does feel like she has excessive phlegm. Patient denies any dry eyes. PAST MEDICAL HISTORY Diagnosis Date Back pain Depression Endometriosis GERD (gastroesophageal reflux disease) Hypertension Obesity (BMI 30.0-34.9) Osteopenia Other abnormal heart sounds rheumatic fever PAST SURGICAL HISTORY Procedure Laterality Date COLONOSCOPY FLX DX W/COLLJ SPEC WHEN PFRMD 04/15/2016 Colonoscopy DILATION & CURETTAGE DX&/THER NONOBSTETRIC x 2 LIG/TRNSXJ FLP TUBE ABDL/VAG APPR UNI/BI 1992 OOPHORECTOMY PARTIAL/TOTAL UNI/BI bilaterally with tubes at time of hysterectomy SIGMOIDOSCOPY FLX DX W/COLLJ SPEC BR/WA IF PFRMD 06/19/01 Sigmoidoscopy, flexible TONSILLECTOMY & ADENOIDECTOMY <AGE 13 as a child TOTAL ABDOMINAL HYSTERECT W/WO RMVL TUBE OVARY 1993 NAKIA/BSO-endometriosis FAMILY HISTORY Problem Relation Age of Onset Coronary Artery Disease Mother [place] age 70s Hypertension Mother Diabetes Mother Stroke Mother Thyroid Mother Arthritis Father Coronary Artery Disease Maternal Grandmother [place] Coronary Artery Disease Maternal Grandfather UT CURRENT OUTPATIENT MEDICATIONS Current Outpatient Medications on File Prior to Visit Medication Sig buPROPion XL (WELLBUTRIN XL) 150 mg 24 hr tablet Take 1 tablet by mouth once daily. FLUoxetine HCl (PROZAC) 40 mg capsule Take 1 capsule by mouth once daily. pantoprazole DR (PROTONIX) 20 mg tablet Take 1 tablet by mouth once daily. meloxicam (MOBIC) 7.5 mg tablet TAKE ONE TABLET BY MOUTH EVERY DAY NEEDED WITH FOOD. felodipine ER (PLENDIL) 10 mg 24 hr tablet Take 1 tablet by mouth once daily. hydroCHLOROthiazide (HYDRODIURIL, ESIDRIX) 25 mg tablet Take 1 tablet by mouth once daily. Estradiol (ESTRACE) 0.5 mg tablet Take 1 tablet by mouth once daily. Cholecalciferol, Vitamin D3, 2,000 unit cap Take 1 tablet by mouth once daily. magnesium oxide 400 mg cap Take 3 capsules by mouth once daily. Aspirin 81 mg Tab Take 81 mg by mouth once daily. Lactobacillus acidophilus (BACID) cap Take 1 capsule by mouth once daily. MULTIVITAMIN TAB Take 2 tablets daily. No current facility-administered medications on file prior to visit. ALLERGIES ALLERGIES No Known Allergies The remainder of the patient's history and review of systems is on the outpatient questionaire which was reviewed by me and placed in the outpatient chart. PHYSICAL EXAMINATION Appearance: General examination of the patient's external face, head and neck reveals no abnormalities. The patient is not retrognathic The patient's voice is strong and clear and they communicate easily. Ears: Exam of the ears revealed normal appearing external auditory canals, tympanic membranes, and middle ears. No signs of infection or fluid were seen. Nose: External nasal exam was normal. Throat: There were no lesions to visualization or palpation of the lips, cheeks, gums, floor of mouth, tongue, hard and soft palate, tonsillar pillars or posterior pharyngeal wall. The patient is a Day Tongue Position 2 and has surgically absent tonsils. Neck: Palpation of the neck revealed no adenopathy, salivary gland masses or asymmetry, or thyroid masses or enlargement. Lizzie Boles MD documented in this encounter [facility] [place] 01-01-2022 History of Present illness Narrative Chief Complaint Patient presents with: Sore Throat: Long covid? + 11/30/21 brain fog: And being cold and no sex drive not related to covid- ongoing x 1 year HPI Brandon Alfred is a 66 year old female who presents here today for Above Complaints.. Patient tested positive for COVID on 11/23 after presenting with following HPI: Acute onset Monday +sore throat +headache +body aches +cough +chills +fever +nausea +body aches +fatigue +ill contacts at work + ill as well Used Advil with mild relief Denies tobacco usage. Patient states that symptoms resolved aside from sore throat which she returned to on 12/03 for and was treated with prednisone which resolved her symptoms. Since then, has had feeling of post nasal drip with sneezing, cough, nasal congestion, rhinorrhea. Has tried treating symptoms with Mucinex without improvement. Also tried Flonase. Not sure if she gets allergies around this time of year. Would like referral for ENT for continued dry mouth. Workup in February was negative for sjogrens and rheumatologic workup. Past medical history, appointments, medications, allergies reviewed. Previous Medical History PAST MEDICAL HISTORY Diagnosis Date Back pain Depression Endometriosis GERD (gastroesophageal reflux disease) Hypertension Obesity (BMI 30.0-34.9) Osteopenia Other abnormal heart sounds rheumatic fever Previous Surgical History PAST SURGICAL HISTORY Procedure Laterality Date COLONOSCOPY FLX DX W/COLLJ SPEC WHEN PFRMD 04/15/2016 Colonoscopy DILATION & CURETTAGE DX&/THER NONOBSTETRIC x 2 LIG/TRNSXJ FLP TUBE ABDL/VAG APPR UNI/BI 1992 OOPHORECTOMY PARTIAL/TOTAL UNI/BI bilaterally with tubes at time of hysterectomy SIGMOIDOSCOPY FLX DX W/COLLJ SPEC BR/WA IF PFRMD 06/19/01 Sigmoidoscopy, flexible TONSILLECTOMY & ADENOIDECTOMY <AGE 13 as a child TOTAL ABDOMINAL HYSTERECT W/WO RMVL TUBE OVARY 1993 NAKIA/BSO-endometriosis Family History FAMILY HISTORY Problem Relation Age of Onset Coronary Artery Disease Mother [place] age 70s Hypertension Mother Diabetes Mother Stroke Mother Thyroid Mother Arthritis Father Coronary Artery Disease Maternal Grandmother [place] Coronary Artery Disease Maternal Grandfather [place] Patient Allergies ALLERGIES No Known Allergies Current Medications Current Outpatient Medications on File Prior to Visit Medication Sig buPROPion XL (WELLBUTRIN XL) 150 mg 24 hr tablet Take 1 tablet by mouth once daily. FLUoxetine HCl (PROZAC) 40 mg capsule Take 1 capsule by mouth once daily. pantoprazole DR (PROTONIX) 20 mg tablet Take 1 tablet by mouth once daily. meloxicam (MOBIC) 7.5 mg tablet TAKE ONE TABLET BY MOUTH EVERY DAY NEEDED WITH FOOD. Estradiol (ESTRACE) 0.5 mg tablet Take 1 tablet by mouth once daily. Cholecalciferol, Vitamin D3, 2,000 unit cap Take 1 tablet by mouth once daily. magnesium oxide 400 mg cap Take 3 capsules by mouth once daily. Aspirin 81 mg Tab Take 81 mg by mouth once daily. Lactobacillus acidophilus (BACID) cap Take 1 capsule by mouth once daily. MULTIVITAMIN TAB Take 2 tablets daily. felodipine ER (PLENDIL) 10 mg 24 hr tablet Take 1 tablet by mouth once daily. hydroCHLOROthiazide (HYDRODIURIL, ESIDRIX) 25 mg tablet Take 1 tablet by mouth once daily. No current facility-administered medications on file prior to visit. Social History Social History Tobacco Use Smoking status: Never Smokeless tobacco: Never Substance Use Topics Alcohol use: No Drug use: No Review of Symptoms REVIEW OF SYSTEMS GENERAL: No weight loss, malaise or fevers RESPIRATORY: Negative for hemoptysis, wheezing, COPD, dyspnea or shortness of breath CARDIOVASCULAR: Negative for chest pain, leg swelling, hypertension, CHF or palpitations GI: No nausea, vomiting, or diarrhea SKIN: Negative for lesions, rash, and itching EXAM: BP 132/62 Pulse 77 Resp 16 Wt 62.1 kg (137 lb) SpO2 99% BMI 26.20 kg/m General Appearance: Well appearing, alert, in no acute distress, well-hydrated, well nourished.. Skin: Skin color, texture, turgor normal, no suspicious rashes or lesions. Head: Normocephalic, no masses, lesions, tenderness or abnormalities. Eyes: Anicteric sclera. Pupils are equally round and reactive to light. Extraocular movements are intact. . Ears: External ears normal, canals clear. Nose/Sinuses: Nares normal, septum midline, mucosa normal, no drainage or sinus tenderness. Oropharynx: Lips, mucosa, and tongue normal, teeth and gums normal, oropharynx normal. Neck: Supple, no adenopathy; thyroid symmetric, normal size, no bruits. Lungs: Lungs clear to auscultation. No wheezing, rhonchi, rales.. Heart: RRR without murmur, gallop, or rubs. No ectopy. Health Maintenance List COLORECTAL CANCER SCREENING due on 04/15/2021 BONE DENSITY due on 2021 ADVANCE DIRECTIVE DISCUSSION Never done PNEUMOCOCCAL: 65+(1 - PCV) Never done DTAP,TDAP,TD(2 - Td or Tdap) due on 10/11/2021 INFLUENZA(1) due on 11/25/2021 HIV SCREENING due on 01/12/2022 SHINGRIX VACCINE(1 of 2) due on 01/12/2022 COVID-19 VACCINE(1) due on 01/12/2022 MAMMOGRAM due on 04/06/2022 ANNUAL PCP TEAM CHRONIC DISEASE VISIT due on 09/29/2022 BP CONTROLLED (<130/80) due on 12/03/2022 DIABETES SCREEN due on 03/12/2024 LIPID SCREEN due on 01/23/2026 HEPATITIS C SCREENING Completed Data reviewed Component Latest Ref Rng & Units 11/23/2021 COVID 19 Result Not Detected SARS-CoV-2 (Agent of COVID-19) Detected by RT-PCR or equivalent method. (A) Influenza A PCR Negative for Influenza A by RT-PCR Negative for Influenza A by RT-PCR Influenza B PCR Negative for Influenza B by RT-PCR Negative for Influenza B by RT-PCR Component Latest Ref Rng & Units 03/12/2021 Protein, Total 6.3 - 8.0 g/dL 6.9 Albumin 3.9 - 4.9 g/dL 4.5 Calcium 8.5 - 10.2 mg/dL 9.5 Bilirubin, Total 0.2 - 1.3 mg/dL 0.8 Alkaline Phosphatase 34 - 123 U/L 77 AST 13 - 35 U/L 22 Glucose 74 - 99 mg/dL 93 BUN 7 - 21 mg/dL 20 Creatinine 0.58 - 0.96 mg/dL 0.73 Sodium 136 - 144 mmol/L 138 Potassium 3.7 - 5.1 mmol/L 3.6 (L) Chloride 97 - 105 mmol/L 99 CO2 22 - 30 mmol/L 30 Anion Gap 9 - 18 mmol/L 9 ALT 7 - 38 U/L 26 eGFR- >60 eGFR-All Other Races . >60 WBC 3.70 - 11.00 k/uL 6.42 RBC 3.90 - 5.20 m/uL 5.17 Hemoglobin 11.5 - 15.5 g/dL 15.1 Hematocrit 36.0 - 46.0 % 47.7 (H) MCV 80.0 - 100.0 fL 92.3 MCH 26.0 - 34.0 pG 29.2 MCHC 30.5 - 36.0 g/dL 31.7 RDW-CV 11.5 - 15.0 % 12.3 Platelet Count 150 - 400 k/uL 262 MPV 9.0 - 12.7 fL 9.6 Absolute nRBC <0.01 k/uL <0.01 LYNSEY by EIA, Qual Negative Negative LYNSEY by EIA OD Ratio 0.8 TSH 0.270 - 4.200 uU/mL 1.280 Rheumatoid Factor <16 IU/mL <10 WSR 0 - 20 mm/hr 2 CRP <0.9 mg/dL 0.3 Anti-SSA <1.0 AI <0.2 Anti-SSB <1.0 AI <0.2 ASSESSMENT/PLAN: 1. Seasonal allergic rhinitis, unspecified trigger - ICD9: 477.9, ICD10: J30.2 (primary diagnosis) Symptoms consistent with allergies. Discussed OTC Zyrtec or Thania along with nasal saline rinses. Call if not improving in 2-3 weeks and will add on singulair. 2. Post-nasal drip - ICD9: 784.91, ICD10: R09.82 See above. 3. Dry mouth - ICD9: 527.7, ICD10: R68.2 Normal on exam today. Previous workup negative. Refer to ENT. - CONSULT TO ENT 4. History of COVID-19 - ICD9: V12.09, ICD10: Z86.16 Symptoms resolved. Stacie Perdue MD documented in this encounter [facility] [place] 12-03-2021 History of Present illness Narrative CC: Patient presents with: Sore Throat: CODY ear pain, BOLTON x last night, covid + 11/24 HPI: Brandon Alfred is a 66 year old female who presents to the office with complaint of sore throat and ear symptoms for the past day. Symptoms are worsening Associated symptoms includes sore throat and headache. Denies facial pain/pressure, body aches, fever, nausea, vomiting , and diarrhea. Treatments tried include nothing so far. with no relief of symptoms. Sick contacts: unknown. History of asthma, frequent episodes of bronchitis, chronic bronchitis, bronchiectasis or COPD: No Smoker: No Seasonal/environmental allergies: No The ROS is otherwise negative. The patient's pmh, medications, allergies, and past visits are reviewed. PHYSICAL EXAM: BP 124/70 Pulse 77 Temp 37.1 C (98.7 F) Resp 18 Wt 62.3 kg (137 lb 6.4 oz) SpO2 95% BMI 26.28 kg/m General appearance: alert, cooperative, pleasant, in no acute distress Head: Normocephalic Eyes: EOM's intact, conjunctiva pink and moist, no icterus, sclera white, non-injected Ears: Right ear: External ear/canal- Normal, TM - clear with good landmarks. Left ear: External ear/canal- Normal, TM - clear with good landmarks Oropharynx:moderate erythema, without exudates present previously had tonsillectomy. Patient's uvula is mildly swollen. Heart: Negative. RRR without obvious murmur, gallop, or rubs. No ectopy. Lungs: clear to auscultation, without rales or wheeze, good air exchange PAST MEDICAL HISTORY Diagnosis Date Back pain Depression Endometriosis GERD (gastroesophageal reflux disease) Hypertension Obesity (BMI 30.0-34.9) Osteopenia Other abnormal heart sounds rheumatic fever PAST SURGICAL HISTORY Procedure Laterality Date COLONOSCOPY FLX DX W/COLLJ SPEC WHEN PFRMD 04/15/2016 Colonoscopy DILATION & CURETTAGE DX&/THER NONOBSTETRIC x 2 LIG/TRNSXJ FLP TUBE ABDL/VAG APPR UNI/BI 1992 OOPHORECTOMY PARTIAL/TOTAL UNI/BI bilaterally with tubes at time of hysterectomy SIGMOIDOSCOPY FLX DX W/COLLJ SPEC BR/WA IF PFRMD 06/19/01 Sigmoidoscopy, flexible TONSILLECTOMY & ADENOIDECTOMY <AGE 13 as a child TOTAL ABDOMINAL HYSTERECT W/WO RMVL TUBE OVARY 1993 NAKIA/BSO-endometriosis ALLERGIES Patient has no known allergies. MEDICATIONS buPROPion XL (WELLBUTRIN XL) 150 mg 24 hr tablet Take 1 tablet by mouth once daily. FLUoxetine HCl (PROZAC) 40 mg capsule Take 1 capsule by mouth once daily. pantoprazole DR (PROTONIX) 20 mg tablet Take 1 tablet by mouth once daily. meloxicam (MOBIC) 7.5 mg tablet TAKE ONE TABLET BY MOUTH EVERY DAY NEEDED WITH FOOD. Estradiol (ESTRACE) 0.5 mg tablet Take 1 tablet by mouth once daily. Cholecalciferol, Vitamin D3, 2,000 unit cap Take 1 tablet by mouth once daily. magnesium oxide 400 mg cap Take 3 capsules by mouth once daily. Aspirin 81 mg Tab Take 81 mg by mouth once daily. Lactobacillus acidophilus (BACID) cap Take 1 capsule by mouth once daily. MULTIVITAMIN TAB Take 2 tablets daily. felodipine ER (PLENDIL) 10 mg 24 hr tablet Take 1 tablet by mouth once daily. hydroCHLOROthiazide (HYDRODIURIL, ESIDRIX) 25 mg tablet Take 1 tablet by mouth once daily. FAMILY HISTORY Problem Relation Age of Onset Coronary Artery Disease Mother [place] age 70s Hypertension Mother Diabetes Mother Stroke Mother Thyroid Mother Arthritis Father Coronary Artery Disease Maternal Grandmother [place] Coronary Artery Disease Maternal Grandfather [place] Social History Tobacco Use Smoking status: Never Smokeless tobacco: Never Substance Use Topics Alcohol use: No Drug use: No ASSESSMENT/PLAN: 1. Sore throat - ICD9: 462, ICD10: J02.9 - STREP A MOLECULAR (POC)- negative Prednisone daily for 5 days. Prescription instructions reviewed with patient as applicable. Potential red flag symptoms discussed with the patient. Reviewed appropriate action plan to take if red flag symptoms occur she will go to the ER if anything changes. Patient agreeable to treatment plan. Linda Jorge APRN.CARLOS documented in this encounter [facility] [place] 11-27-2021 Miscellaneous Notes Verified results with pt. Pt verbalized understanding. Agnieszka Azul MA Phone call placed, unable to leave a message mailbox reported as full [phone], . [employer] message sent in addition last log on 11/24/2021. Radha Vo LPN TC to Pt. Unable to LM due to the mailbox is full. Will try again later. Natalia Fletcher LPN You tested positive for COVID-19 Follow the CDC guidelines for isolation: 1. Everyone, regardless of vaccination status, should stay home for 5 days. 2. If you have no symptoms or your symptoms are resolving after 5 days, you can leave your house. 3. Continue to wear a mask around others for 5 additional days. If you have a fever, continue to stay home until your fever resolves, even if it is longer than 5 days. Please monitor your symptoms, and for any worrisome symptoms, call your primary care provider or schedule a visit with [facility]. A test is not recommended to return to work/school when meeting the above criteria. documented in this encounter [facility] [place] 11-23-2021 Instructions Katie Thompson APRN.CNP - 11/23/2021 1:13 PM EDT FACT SHEET FOR PATIENTS, PARENTS, AND CAREGIVERS EMERGENCY USE AUTHORIZATION (EUA) OF PAXLOVID FOR CORONAVIRUS DISEASE 2019 (COVID-19) You are being given this Fact Sheet because your healthcare provider believes it is necessary to provide you with PAXLOVID for the treatment of xvfo-hs-ulizmobl coronavirus disease (COVID-19) caused by the SARS-CoV-2 virus. This Fact Sheet contains information to help you understand the risks and benefits of taking the PAXLOVID you have received or may receive. The U.S. Food and Drug Administration (FDA) has issued an Emergency Use Authorization (EUA) to make PAXLOVID available during the COVID-19 pandemic (for more details about an EUA please see What is an Emergency Use Authorization? at the end of this document). PAXLOVID is not an FDA-approved medicine in the [place]. Read this Fact Sheet for information about PAXLOVID. Talk to your healthcare provider about your options or if you have any questions. It is your choice to take PAXLOVID. What is COVID-19? COVID-19 is caused by a virus called a coronavirus. You can get COVID-19 through close contact with another person who has the virus. COVID-19 illnesses have ranged from very jaqv-cx-tdlcvb, including illness resulting in . While information so far suggests that most COVID-19 illness is mild, serious illness can happen and may cause some of your other medical conditions to become worse. Older people and people of all ages with severe, long lasting (chronic) medical conditions like heart disease, lung disease, and diabetes, for example seem to be at higher risk of being hospitalized for COVID-19. What is PAXLOVID? PAXLOVID is an investigational medicine used to treat ioqh-sw-vyzwbtia COVID-19 in adults and children [12 years of age and older weighing at least 88 pounds (40 kg)] with positive results of direct SARS-CoV-2 viral testing, and who are at high risk for progression to severe COVID-19, including hospitalization or . PAXLOVID is investigational because it is still being studied. There is limited information about the safety and effectiveness of using PAXLOVID to treat people with ejzh-jw-zmilgzap COVID-19. The FDA has authorized the emergency use of PAXLOVID for the treatment of wojh-qv-qyhllwkh COVID-19 in adults and children [12 years of age and older weighing at least 88 pounds (40 kg)] with a positive test for the virus that causes COVID-19, and who are at high risk for progression to severe COVID-19, including hospitalization or , under an EUA. 1 Revised: 11 June 2021 What should I tell my healthcare provider before I take PAXLOVID? Tell your healthcare provider if you: Have any allergies Have liver or kidney disease Are or plan to become Are a child Have any serious illnesses Tell your healthcare provider about all the medicines you take, including prescription and ilwa-lta-saxhxia medicines, vitamins, and herbal supplements. Some medicines may interact with PAXLOVID and may cause serious side effects. Keep a list of your medicines to show your healthcare provider and pharmacist when you get a new medicine. You can ask your healthcare provider or pharmacist for a list of medicines that interact with PAXLOVID. Do not start taking a new medicine without telling your healthcare provider. Your healthcare provider can tell you if it is safe to take PAXLOVID with other medicines. Tell your healthcare provider if you are taking combined hormonal contraceptive. PAXLOVID may affect how your control pills work. Females who are able to become should use another effective alternative form of contraception or an additional barrier method of contraception. Talk to your healthcare provider if you have any questions about contraceptive methods that might be right for you. How do I take PAXLOVID? PAXLOVID consists of 2 medicines: nirmatrelvir and ritonavir. Take 2 pink tablets of nirmatrelvir with 1 white tablet of ritonavir by mouth 2 times each day (in the morning and in the evening) for 5 days. For each dose, take all 3 tablets at the same time. If you have kidney disease, talk to your healthcare provider. You may need a different dose. Swallow the tablets whole. Do not chew, break, or crush the tablets. Take PAXLOVID with or without food. Do not stop taking PAXLOVID without talking to your healthcare provider, even if you feel better. If you miss a dose of PAXLOVID within 8 hours of the time it is usually taken, take it as soon as you remember. If you miss a dose by more than 8 hours, skip the missed dose and take the next dose at your regular time. Do not take 2 doses of PAXLOVID at the same time. If you take too much PAXLOVID, call your healthcare provider or go to the nearest hospital emergency room right away. If you are taking a ritonavir-or cobicistat-containing medicine to treat hepatitis C or Human Immunodeficiency Virus (HIV), you should continue to take your medicine as prescribed by your healthcare provider. Talk to your healthcare provider if you do not feel better or if you feel worse after 5 days. Who should generally not take PAXLOVID? Do not take PAXLOVID if: You are allergic to nirmatrelvir, ritonavir, or any of the ingredients in PAXLOVID You are taking any of the following medicines: Alfuzosin Pethidine, propoxyphene Ranolazine Amiodarone, dronedarone, flecainide, propafenone, quinidine Colchicine Lurasidone, pimozide, clozapine Dihydroergotamine, ergotamine, methylergonovine Lovastatin, simvastatin Sildenafil (Revatio ) for pulmonary arterial hypertension (PAH) Triazolam, oral midazolam Apalutamide Carbamazepine, phenobarbital, phenytoin Rifampin [place] s Wort (hypericum perforatum) Taking PAXLOVID with these medicines may cause serious or life-threatening side effects or affect how PAXLOVID works. These are not the only medicines that may cause serious side effects if taken with PAXLOVID. PAXLOVID may increase or decrease the levels of multiple other medicines. It is very important to tell your healthcare provider about all of the medicines you are taking because additional laboratory tests or changes in the dose of your other medicines may be necessary while you are taking PAXLOVID. Your healthcare provider may also tell you about specific symptoms to watch out for that may indicate that you need to stop or decrease the dose of some of your other medicines. What are the important possible side effects of PAXLOVID? Possible side effects of PAXLOVID are: Allergic Reactions. Allergic reactions can happen in people taking PAXLOVID, even after only 1 dose. Stop taking PAXLOVID and call your healthcare provider right away if you get any of the following symptoms of an allergic reaction: hives trouble swallowing or breathing swelling of the mouth, lips, or face throat tightness hoarseness skin rash Liver Problems. Tell your healthcare provider right away if you have any of these signs and symptoms of liver problems: loss of appetite, yellowing of your skin and the whites of eyes (jaundice), dark-colored urine, pale colored stools and itchy skin, stomach area (abdominal) pain. Resistance to HIV Medicines. If you have untreated HIV infection, PAXLOVID may lead to some HIV medicines not working as well in the future. Other possible side effects include: altered sense of taste diarrhea high blood pressure muscle aches These are not all the possible side effects of PAXLOVID. Not many people have taken PAXLOVID. Serious and unexpected side effects may happen. PAXLOVID is still being studied, so it is possible that all of the risks are not known at this time. What other treatment choices are there? Veklury (remdesivir) is FDA-approved for the treatment of roxa-jm-wgfbgycc COVID-19 in certain adults and children. Talk with your doctor to see if Veklury is appropriate for you. Like PAXLOVID, FDA may also allow for the emergency use of other medicines to treat people with COVID-19. Go to https://www.fda.gov/emergency-prep aredness-andrecrissyonse/wgv-vqecv-cfu xpjevdy-duf-qytpxu-framework/emerg dlip-fqa-nforzttqprfdb for information on the emergency use of other medicines that are authorized by FDA to treat people with COVID-19. Your healthcare provider may talk with you about clinical trials for which you may be eligible. It is your choice to be treated or not to be treated with PAXLOVID. Should you decide not to receive it or for your child not to receive it, it will not change your standard medical care. What if I am or ? There is lotus notes administrator treating women or mothers with PAXLOVID. For a mother and unborn baby, the benefit of taking PAXLOVID may be greater than the risk from the treatment. If you are , discuss your options and specific situation with your healthcare provider. It is recommended that you use effective barrier contraception or do not have sexual activity while taking PAXLOVID. If you are , discuss your options and specific situation with your healthcare provider. How do I report side effects with PAXLOVID? Contact your healthcare provider if you have any side effects that bother you or do not go away. Report side effects to [employer] at www.fda.gov/medloanDepottch or call 0-753-YHG5054 or you can report side effects to [employer] at the contact information provided below. Website Fax number Telephone number [email or web address] How should I store PAXLOVID? Store PAXLOVID tablets at room temperature, between 68?F to 77?F (20?C to 25?C). How can I learn more about COVID-19? Ask your healthcare provider. Visit https://www.cdc.gov/COVID19. Contact your local or state public health department. What is an Emergency Use Authorization (EUA)? The [place] FDA has made PAXLOVID available under an emergency access mechanism called an Emergency Use Authorization (EUA). The EUA is supported by a [place] of Health and Human Service (HHS) declaration that circumstances exist to justify the emergency use of drugs and biological products during the COVID-19 pandemic. PAXLOVID for the treatment of uzgr-dr-lghdqcfq COVID-19 in adults and children [12 years of age and older weighing at least 88 pounds (40 kg)] with positive results of direct SARS-CoV-2 viral testing, and who are at high risk for progression to severe COVID-19, including hospitalization or , has not undergone the same type of review as an FDA-approved product. In issuing an EUA under the COVID-19 public health emergency, the FDA has determined, among other things, that based on the total amount of scientific evidence available including data from adequate and well-controlled clinical trials, if available, it is reasonable to believe that the product may be effective for diagnosing, treating, or preventing COVID-19, or a serious or life-threatening disease or condition caused by COVID-19; that the known and potential benefits of the product, when used to diagnose, treat, or prevent such disease or condition, outweigh the known and potential risks of such product; and that there are no adequate, approved, and available alternatives. All of these criteria must be met to allow for the product to be used in the treatment of patients during the COVID-19 pandemic. The EUA for PAXLOVID is in effect for the duration of the COVID-19 declaration justifying emergency use of this product, unless terminated or revoked (after which the products may no longer be used under the EUA). Additional Information For general questions, visit the website or call the telephone number provided below. Website Telephone number [email or web address] [facility] (0-926-A82-INRP) You can also go to [email or web address] or call for more information. Pfizer Distributed by [employer] [place] [address] [id number] Revised: 11 June 2021 documented in this encounter [facility] [place] 11-23-2021 History of Present illness Narrative This note was created using NoteWriter. Subjective Brandon Alfred is a 66 year old female. 66 year old female with PMH HTN and acid reflux presents with complaints of illness. Acute onset Monday +sore throat +headache +body aches +cough +chills +fever +nausea +body aches +fatigue +ill contacts at work + ill as well Used Advil with mild relief Denies tobacco usage. The history is provided by the patient. No speech language therapist was used. Cough This is a new problem. The current episode started more than 2 days ago. The problem occurs constantly. The problem has been gradually worsening. The cough is Non-productive. The maximum temperature recorded prior to her arrival was 100 to 100.9 F. Associated symptoms include chills, ear pain, headaches, rhinorrhea, sore throat and myalgias. Pertinent negatives include no chest pain, no sweats, no weight loss, no ear congestion, no shortness of breath, no wheezing and no eye redness. Treatments tried: aDVIL. The treatment provided mild relief. She is not a smoker. Her past medical history does not include bronchitis, pneumonia, bronchiectasis, COPD, emphysema or asthma. PAST MEDICAL HISTORY Diagnosis Date Back pain Depression Endometriosis GERD (gastroesophageal reflux disease) Hypertension Obesity (BMI 30.0-34.9) Osteopenia Other abnormal heart sounds rheumatic fever PAST SURGICAL HISTORY Procedure Laterality Date COLONOSCOPY FLX DX W/COLLJ SPEC WHEN PFRMD 04/15/2016 Colonoscopy DILATION & CURETTAGE DX&/THER NONOBSTETRIC x 2 LIG/TRNSXJ FLP TUBE ABDL/VAG APPR UNI/BI 1992 OOPHORECTOMY PARTIAL/TOTAL UNI/BI bilaterally with tubes at time of hysterectomy SIGMOIDOSCOPY FLX DX W/COLLJ SPEC BR/WA IF PFRMD 06/19/01 Sigmoidoscopy, flexible TONSILLECTOMY & ADENOIDECTOMY <AGE 13 as a child TOTAL ABDOMINAL HYSTERECT W/WO RMVL TUBE OVARY 1993 NAKIA/BSO-endometriosis ALLERGIES Patient has no known allergies. MEDICATIONS buPROPion XL (WELLBUTRIN XL) 150 mg 24 hr tablet Take 1 tablet by mouth once daily. FLUoxetine HCl (PROZAC) 40 mg capsule Take 1 capsule by mouth once daily. pantoprazole DR (PROTONIX) 20 mg tablet Take 1 tablet by mouth once daily. meloxicam (MOBIC) 7.5 mg tablet TAKE ONE TABLET BY MOUTH EVERY DAY NEEDED WITH FOOD. Estradiol (ESTRACE) 0.5 mg tablet Take 1 tablet by mouth once daily. Cholecalciferol, Vitamin D3, 2,000 unit cap Take 1 tablet by mouth once daily. magnesium oxide 400 mg cap Take 3 capsules by mouth once daily. Aspirin 81 mg Tab Take 81 mg by mouth once daily. Lactobacillus acidophilus (BACID) cap Take 1 capsule by mouth once daily. MULTIVITAMIN TAB Take 2 tablets daily. felodipine ER (PLENDIL) 10 mg 24 hr tablet Take 1 tablet by mouth once daily. hydroCHLOROthiazide (HYDRODIURIL, ESIDRIX) 25 mg tablet Take 1 tablet by mouth once daily. FAMILY HISTORY Problem Relation Age of Onset Coronary Artery Disease Mother [place] age 70s Hypertension Mother Diabetes Mother Stroke Mother Thyroid Mother Arthritis Father Coronary Artery Disease Maternal Grandmother [place] Coronary Artery Disease Maternal Grandfather [place] Social History Tobacco Use Smoking status: Never Smokeless tobacco: Never Substance Use Topics Alcohol use: No Drug use: No Review of Systems Constitutional: Positive for chills and fatigue. Negative for fever and weight loss. HENT: Positive for congestion, ear pain, rhinorrhea and sore throat. Eyes: Negative for pain, discharge, redness and itching. Respiratory: Positive for cough. Negative for shortness of breath and wheezing. Cardiovascular: Negative for chest pain. Gastrointestinal: Negative for abdominal pain, diarrhea, nausea and vomiting. Musculoskeletal: Positive for arthralgias and myalgias. Skin: Negative for color change, pallor, rash and wound. Allergic/Immunologic: Negative for environmental allergies, food allergies and immunocompromised state. Neurological: Positive for headaches. Hematological: Negative for adenopathy. Does not bruise/bleed easily. Psychiatric/Behavioral: Negative for agitation and behavioral problems. Objective BP 124/80 Pulse 85 Temp 37.8 C (100 F) Resp 18 Wt 61.7 kg (136 lb) SpO2 97% BMI 26.01 kg/m Physical Exam Vitals and nursing note reviewed. Constitutional: General: She is not in acute distress. Appearance: Normal appearance. She is normal weight. She is not ill-appearing, toxic-appearing or diaphoretic. HENT: Head: Normocephalic and atraumatic. Right Ear: Ear canal and external ear normal. Left Ear: Ear canal and external ear normal. Nose: Nose normal. No congestion or rhinorrhea. Mouth/Throat: Mouth: Mucous membranes are moist. Pharynx: No oropharyngeal exudate or posterior oropharyngeal erythema. Eyes: General: Right eye: No discharge. Left eye: No discharge. Extraocular Movements: Extraocular movements intact. Conjunctiva/sclera: Conjunctivae normal. Pupils: Pupils are equal, round, and reactive to light. Cardiovascular: Rate and Rhythm: Normal rate and regular rhythm. Pulses: Normal pulses. Heart sounds: Normal heart sounds. No murmur heard. No friction rub. Pulmonary: Effort: Pulmonary effort is normal. No respiratory distress. Breath sounds: Normal breath sounds. No stridor. No wheezing, rhonchi or rales. Chest: Chest wall: No tenderness. Abdominal: General: Abdomen is flat. There is no distension. Palpations: Abdomen is soft. There is no mass. Tenderness: There is no abdominal tenderness. There is no right CVA tenderness, left CVA tenderness, guarding or rebound. Hernia: No hernia is present. Musculoskeletal: General: No swelling, tenderness, deformity or signs of injury. Normal range of motion. Cervical back: Normal range of motion and neck supple. No rigidity. Right lower leg: No edema. Left lower leg: No edema. Lymphadenopathy: Cervical: No cervical adenopathy. Skin: General: Skin is warm and dry. Capillary Refill: Capillary refill takes less than 2 seconds. Coloration: Skin is not jaundiced or pale. Findings: No bruising, erythema, lesion or rash. Neurological: General: No focal deficit present. Mental Status: She is alert and oriented to person, place, and time. Cranial Nerves: No cranial nerve deficit. Sensory: No sensory deficit. Motor: No weakness. Coordination: Coordination normal. Gait: Gait normal. Psychiatric: Mood and Affect: Mood normal. Behavior: Behavior normal. Thought Content: Thought content normal. Judgment: Judgment normal. Assessment and Plan ASSESSMENT/PLAN: 1. Viral illness - ICD9: 079.99, ICD10: B34.9 (primary diagnosis) - Discussed viral etiology and rationale for treatment. - Symptomatic treatment with prn analgesia - Supportive care with fluids and rest - The patient may also use OTC cough and cold meds as needed, warm salt water gargles, throat lozenges and/or OTC throat spray as needed, and nasal saline gtts and suction prn. - Follow up in 3-5 days if symptoms persist or sooner if worsening of symptoms - COVID WITH FLUA+B, ROUTINE 2. Suspected COVID-19 virus infection - ICD9: V01.79, ICD10: Z20.822 +ill contacts Requesting testing - COVID WITH FLUA+B, ROUTINE-obtained. Discussed following up with PCP if antiviral were desired. Katie Thompson APRN.CARLOS documented in this encounter [facility] [place] documented as of this encounter (statuses as of 11/23/2021) [facility] [place]01-[facility]2017 History of Past illness Narrative* Problem Noted Date Resolved Date Special screening for malignant neoplasm of colo n 04/15/2016 05/05/2016 Symptomatic menopausal or female climacteric sta boo 12/21/2009 07/30/2014 Overweight(278.02) 10/07/2009 07/30/2014 Other malaise and fatigue 09/09/20082014 PAIN BACK, LOW 05/13/2008 07/30/2014 Pain in limb 06/15/2007 07/30/2014 Elevated blood pressure read ing without diagnosis of hypertension 03/29/2006 04/02/2007 PAIN ABDOMEN( Other Specific Site or) 01/07/2006 07/30/2014 Endometriosis 07/30/2014 documented as of this encounter (statuses as of 11/27/2021) [facility] [place] History of Past illness Narrative* Problem Noted Date Resolved Date Special screening for malignant neoplasm of colo n 04/15/2016 05/05/2016 Symptomatic menopausal or female climacteric sta boo 12/21/2009 07/30/2014 Overweight(278.02) 10/07/2009 07/30/2014 Other malaise and fatigue 09/09/20082014 PAIN BACK, LOW 05/13/2008 07/30/2014 Pain in limb 06/15/2007 07/30/2014 Elevated blood pressure read ing without diagnosis of hypertension 03/29/2006 04/02/2007 PAIN ABDOMEN( Other Specific Site or) 01/07/2006 07/30/2014 Endometriosis 07/30/2014 documented as of this encounter (statuses as of 12/03/2021) [facility] [place]2017 History of Past illness Narrative* Problem Noted Date Resolved Date Special screening for malignant neoplasm of colo n 04/15/2016 05/05/2016 Symptomatic menopausal or female climacteric sta boo 12/21/2009 07/30/2014 Overweight(278.02) 10/07/2009 07/30/2014 Other malaise and fatigue 09/09/20082014 PAIN BACK, LOW 05/13/2008 07/30/2014 Pain in limb 06/15/2007 07/30/2014 Elevated blood pressure read ing without diagnosis of hypertension 03/29/2006 04/02/2007 PAIN ABDOMEN( Other Specific Site or) 01/07/2006 07/30/2014 Endometriosis 07/30/2014 documented as of this encounter (statuses as of 01/01/2022) [facility] [place] History of Past illness Narrative* Problem Noted Date Resolved Date Special screening for malignant neoplasm of colo n 04/15/2016 05/05/2016 Symptomatic menopausal or female climacteric sta boo 12/21/2009 07/30/2014 Overweight(278.02) 10/07/2009 07/30/2014 Other malaise and fatigue 09/09/20082014 PAIN BACK, LOW 05/13/2008 07/30/2014 Pain in limb 06/15/2007 07/30/2014 Elevated blood pressure read ing without diagnosis of hypertension 03/29/2006 04/02/2007 PAIN ABDOMEN( Other Specific Site or) 01/07/2006 07/30/2014 Endometriosis 07/30/2014 documented as of this encounter (statuses as of 01/04/2022) [facility] [place] History of Past illness Narrative* Problem Noted Date Resolved Date Special screening for malignant neoplasm of colo n 04/15/2016 05/05/2016 Symptomatic menopausal or female climacteric sta boo 12/21/2009 07/30/2014 Overweight(278.02) 10/07/2009 07/30/2014 Other malaise and fatigue 09/09/20082014 PAIN BACK, LOW 05/13/2008 07/30/2014 Pain in limb 06/15/2007 07/30/2014 Elevated blood pressure read ing without diagnosis of hypertension 03/29/2006 04/02/2007 PAIN ABDOMEN( Other Specific Site or) 01/07/2006 07/30/2014 Endometriosis 07/30/2014 documented as of this encounter (statuses as of 03/03/2022) [facility] [place] History of Past illness Narrative* Problem Noted Date Resolved Date Special screening for malignant neoplasm of colo n 04/15/2016 05/05/2016 Symptomatic menopausal or female climacteric sta boo 12/21/2009 07/30/2014 Overweight(278.02) 10/07/2009 07/30/2014 Other malaise and fatigue 09/09/20082014 PAIN BACK, LOW 05/13/2008 07/30/2014 Pain in limb 06/15/2007 07/30/2014 Elevated blood pressure read ing without diagnosis of hypertension 03/29/2006 04/02/2007 PAIN ABDOMEN( Other Specific Site or) 01/07/2006 07/30/2014 Endometriosis 07/30/2014 documented as of this encounter (statuses as of 05/11/2022) [facility] [place] History of Past illness Narrative* Problem Noted Date Resolved Date Special screening for malignant neoplasm of colo n 04/15/2016 05/05/2016 Symptomatic menopausal or female climacteric sta boo 12/21/2009 07/30/2014 Overweight(278.02) 10/07/2009 07/30/2014 Other malaise and fatigue 09/09/20082014 PAIN BACK, LOW 05/13/2008 07/30/2014 Pain in limb 06/15/2007 07/30/2014 Elevated blood pressure read ing without diagnosis of hypertension 03/29/2006 04/02/2007 PAIN ABDOMEN( Other Specific Site or) 01/07/2006 07/30/2014 Endometriosis 07/30/2014 documented as of this encounter (statuses as of 05/16/2022) [facility] [place] History of Past illness Narrative* Problem Noted Date Resolved Date Special screening for malignant neoplasm of colo n 04/15/2016 05/05/2016 Symptomatic menopausal or female climacteric sta boo 12/21/2009 07/30/2014 Overweight(278.02) 10/07/2009 07/30/2014 Other malaise and fatigue 09/09/20082014 PAIN BACK, LOW 05/13/2008 07/30/2014 Pain in limb 06/15/2007 07/30/2014 Elevated blood pressure read ing without diagnosis of hypertension 03/29/2006 04/02/2007 PAIN ABDOMEN( Other Specific Site or) 01/07/2006 07/30/2014 Endometriosis 07/30/2014 documented as of this encounter (statuses as of 09/14/2022) [facility] [place] History of Past illness Narrative* Problem Noted Date Resolved Date Special screening for malignant neoplasm of colo n 04/15/2016 05/05/2016 Symptomatic menopausal or female climacteric sta boo 12/21/2009 07/30/2014 Overweight(278.02) 10/07/2009 07/30/2014 Other malaise and fatigue 09/09/20082014 PAIN BACK, LOW 05/13/2008 07/30/2014 Pain in limb 06/15/2007 07/30/2014 Elevated blood pressure read ing without diagnosis of hypertension 03/29/2006 04/02/2007 PAIN ABDOMEN( Other Specific Site or) 01/07/2006 07/30/2014 Endometriosis 07/30/2014 documented as of this encounter (statuses as of 09/30/2022) [facility] [place] History of Past illness Narrative* Problem Noted Date Diagnosed Date Resolved Date Special screening for malign ant neoplasm of colon 04/15/2016 05/05/2016 Symptomatic menopausal or fe male climacteric states 12/21/2009 07/30/2014 Overweight(278.02) 10/07/2009 5 Other malaise and fatigue 09/09/2008 PAIN BACK, LOW 05/13/2008 07/30/2014 Pain in limb 06/15/2007 07/30/2014 Elevated blood pressure read ing without diagnosis of hypertension 03/29/2006 04/02/2007 PAIN ABDOMEN( Other Specific Site or) 01/07/2006 07/30/2014 Endometriosis 07/30/2014 documented as of this encounter (statuses as of 10/05/2022) [facility] [place]2017 History of Past illness Narrative* Problem Noted Date Diagnosed Date Resolved Date Special screening for malign ant neoplasm of colon 04/15/2016 05/05/2016 Symptomatic menopausal or fe male climacteric states 12/21/2009 07/30/2014 Overweight(278.02) 10/07/2009 5 Other malaise and fatigue 09/09/2008 PAIN BACK, LOW 05/13/2008 07/30/2014 Pain in limb 06/15/2007 07/30/2014 Elevated blood pressure read ing without diagnosis of hypertension 03/29/2006 04/02/2007 PAIN ABDOMEN( Other Specific Site or) 01/07/2006 07/30/2014 Endometriosis 07/30/2014 documented as of this encounter (statuses as of 10/11/2022) [facility] [place] History of Past illness Narrative* Problem Noted Date Diagnosed Date Resolved Date Special screening for malign ant neoplasm of colon 04/15/2016 05/05/2016 Symptomatic menopausal or fe male climacteric states 12/21/2009 07/30/2014 Overweight(278.02) 10/07/2009 5 Other malaise and fatigue 09/09/2008 PAIN BACK, LOW 05/13/2008 07/30/2014 Pain in limb 06/15/2007 07/30/2014 Elevated blood pressure read ing without diagnosis of hypertension 03/29/2006 04/02/2007 PAIN ABDOMEN( Other Specific Site or) 01/07/2006 07/30/2014 Endometriosis 07/30/2014 documented as of this encounter (statuses as of 10/17/2022) [facility] [place] History of Past illness Narrative* Problem Noted Date Diagnosed Date Resolved Date Special screening for malign ant neoplasm of colon 04/15/2016 05/05/2016 Symptomatic menopausal or fe male climacteric states 12/21/2009 07/30/2014 Overweight(278.02) 10/07/2009 5 Other malaise and fatigue 09/09/2008 PAIN BACK, LOW 05/13/2008 07/30/2014 Pain in limb 06/15/2007 07/30/2014 Elevated blood pressure read ing without diagnosis of hypertension 03/29/2006 04/02/2007 PAIN ABDOMEN( Other Specific Site or) 01/07/2006 07/30/2014 Endometriosis 07/30/2014 documented as of this encounter (statuses as of 10/27/2022) [facility] [place] History of Past illness Narrative* Problem Noted Date Diagnosed Date Resolved Date Special screening for malign ant neoplasm of colon 04/15/2016 05/05/2016 Symptomatic menopausal or fe male climacteric states 12/21/2009 07/30/2014 Overweight(278.02) 10/07/2009 5 Other malaise and fatigue 09/09/2008 PAIN BACK, LOW 05/13/2008 07/30/2014 Pain in limb 06/15/2007 07/30/2014 Elevated blood pressure read ing without diagnosis of hypertension 03/29/2006 04/02/2007 PAIN ABDOMEN( Other Specific Site or) 01/07/2006 07/30/2014 Endometriosis 07/30/2014 documented as of this encounter (statuses as of 11/01/2022) [facility] [place]2017 History of Past illness Narrative* Problem Noted Date Diagnosed Date Resolved Date Special screening for malign ant neoplasm of colon 04/15/2016 05/05/2016 Symptomatic menopausal or fe male climacteric states 12/21/2009 07/30/2014 Overweight(278.02) 10/07/2009 5 Other malaise and fatigue 09/09/2008 PAIN BACK, LOW 05/13/2008 07/30/2014 Pain in limb 06/15/2007 07/30/2014 Elevated blood pressure read ing without diagnosis of hypertension 03/29/2006 04/02/2007 PAIN ABDOMEN( Other Specific Site or) 01/07/2006 07/30/2014 Endometriosis 07/30/2014 documented as of this encounter (statuses as of 11/10/2022) [facility] [place]2017 History of Past illness Narrative* Problem Noted Date Diagnosed Date Resolved Date Special screening for malign ant neoplasm of colon 04/15/2016 05/05/2016 Symptomatic menopausal or fe male climacteric states 12/21/2009 07/30/2014 Overweight(278.02) 10/07/2009 5 Other malaise and fatigue 09/09/2008 PAIN BACK, LOW 05/13/2008 07/30/2014 Pain in limb 06/15/2007 07/30/2014 Elevated blood pressure read ing without diagnosis of hypertension 03/29/2006 04/02/2007 PAIN ABDOMEN( Other Specific Site or) 01/07/2006 07/30/2014 Endometriosis 07/30/2014 documented as of this encounter (statuses as of 01/29/2023) [facility] [place]2017 History of Past illness Narrative* Problem Noted Date Diagnosed Date Resolved Date Special screening for malign ant neoplasm of colon 04/15/2016 05/05/2016 Symptomatic menopausal or fe male climacteric states 12/21/2009 07/30/2014 Overweight(278.02) 10/07/2009 5 Other malaise and fatigue 09/09/2008 PAIN BACK, LOW 05/13/2008 07/30/2014 Pain in limb 06/15/2007 07/30/2014 Elevated blood pressure read ing without diagnosis of hypertension 03/29/2006 04/02/2007 PAIN ABDOMEN( Other Specific Site or) 01/07/2006 07/30/2014 Endometriosis 07/30/2014 documented as of this encounter (statuses as of 01/29/2023) [facility] [place] History of Past illness Narrative* Problem Noted Date Diagnosed Date Resolved Date Special screening for malign ant neoplasm of colon 04/15/2016 05/05/2016 Symptomatic menopausal or fe male climacteric states 12/21/2009 07/30/2014 Overweight(278.02) 10/07/2009 5 Other malaise and fatigue 09/09/2008 PAIN BACK, LOW 05/13/2008 07/30/2014 Pain in limb 06/15/2007 07/30/2014 Elevated blood pressure read ing without diagnosis of hypertension 03/29/2006 04/02/2007 PAIN ABDOMEN( Other Specific Site or) 01/07/2006 07/30/2014 Endometriosis 07/30/2014 documented as of this encounter (statuses as of 01/31/2023) [facility] [place] History of Past illness Narrative* Problem Noted Date Diagnosed Date Resolved Date Special screening for malign ant neoplasm of colon 04/15/2016 05/05/2016 Symptomatic menopausal or fe male climacteric states 12/21/2009 07/30/2014 Overweight(278.02) 10/07/2009 5 Other malaise and fatigue 09/09/2008 PAIN BACK, LOW 05/13/2008 07/30/2014 Pain in limb 06/15/2007 07/30/2014 Elevated blood pressure read ing without diagnosis of hypertension 03/29/2006 04/02/2007 PAIN ABDOMEN( Other Specific Site or) 01/07/2006 07/30/2014 Endometriosis 07/30/2014 documented as of this encounter (statuses as of 01/31/2023) [facility] [place] History of Past illness Narrative* Problem Noted Date Diagnosed Date Resolved Date Special screening for malign ant neoplasm of colon 04/15/2016 05/05/2016 Symptomatic menopausal or fe male climacteric states 12/21/2009 07/30/2014 Overweight(278.02) 10/07/2009 5 Other malaise and fatigue 09/09/2008 PAIN BACK, LOW 05/13/2008 07/30/2014 Pain in limb 06/15/2007 07/30/2014 Elevated blood pressure read ing without diagnosis of hypertension 03/29/2006 04/02/2007 PAIN ABDOMEN( Other Specific Site or) 01/07/2006 07/30/2014 Endometriosis 07/30/2014 documented as of this encounter (statuses as of 02/15/2023) [facility] [place] History of Past illness Narrative* Problem Noted Date Diagnosed Date Resolved Date Special screening for malign ant neoplasm of colon 04/15/2016 05/05/2016 Symptomatic menopausal or fe male climacteric states 12/21/2009 07/30/2014 Overweight(278.02) 10/07/2009 5 Other malaise and fatigue 09/09/2008 PAIN BACK, LOW 05/13/2008 07/30/2014 Pain in limb 06/15/2007 07/30/2014 Elevated blood pressure read ing without diagnosis of hypertension 03/29/2006 04/02/2007 PAIN ABDOMEN( Other Specific Site or) 01/07/2006 07/30/2014 Endometriosis 07/30/2014 documented as of this encounter (statuses as of 04/09/2023) [facility] [place] History of Past illness Narrative* Problem Noted Date Diagnosed Date Resolved Date Special screening for malign ant neoplasm of colon 04/15/2016 05/05/2016 Symptomatic menopausal or fe male climacteric states 12/21/2009 07/30/2014 Overweight(278.02) 10/07/2009 5 Other malaise and fatigue 09/09/2008 PAIN BACK, LOW 05/13/2008 07/30/2014 Pain in limb 06/15/2007 07/30/2014 Elevated blood pressure read ing without diagnosis of hypertension 03/29/2006 04/02/2007 PAIN ABDOMEN( Other Specific Site or) 01/07/2006 07/30/2014 Endometriosis 07/30/2014 documented as of this encounter (statuses as of 04/17/2023) [facility] [place] History of Past illness Narrative* Problem Noted Date Diagnosed Date Resolved Date Special screening for malign ant neoplasm of colon 04/15/2016 05/05/2016 Symptomatic menopausal or fe male climacteric states 12/21/2009 07/30/2014 Overweight(278.02) 10/07/2009 5 Other malaise and fatigue 09/09/2008 PAIN BACK, LOW 05/13/2008 07/30/2014 Pain in limb 06/15/2007 07/30/2014 Elevated blood pressure read ing without diagnosis of hypertension 03/29/2006 04/02/2007 PAIN ABDOMEN( Other Specific Site or) 01/07/2006 07/30/2014 Endometriosis 07/30/2014 documented as of this encounter (statuses as of 05/17/2023) [facility] Diagnosis Viral illness- Primary Unspecified viral infection, in conditions classified elsewhere and of unspecified site Suspected COVID-19 virus [facility] Diagnosis Sore throat- Primary Acute pharyngitis documented in this encounter [facility]* Diagnosis Seasonal allergic rhinitis, unspecified trigger- Primary Post-nasal drip Postnasal drip Dry mouth Disturbance of salivary secretion History of COVID-19 [facility] Diagnosis Dry mouth Disturbance of salivary secretion [facility] Diagnosis Adjustment disorder with depressed mood GERD without esophagitis Esophageal reflux Essential hypertension Unspecified essential hypertension Postmenopausal HRT (hormone replacement therapy) Need for prophylactic hormone replacement therapy (postmenopausal) [facility] Diagnosis Postmenopausal HRT (hormone replacement therapy) Need for prophylactic hormone replacement therapy (postmenopausal) [facility] Diagnosis Encounter for screening mammogram for breast cancer [facility] Diagnosis Adjustment disorder with depressed mood GERD without esophagitis Esophageal reflux Essential hypertension Unspecified essential hypertension [facility] Diagnosis Neck pain on left side- Primary Cervicalgia Numbness and tingling in both hands SOB (shortness of breath) Shortness of breath [facility]* Diagnosis Hyperlipidemia, mixed- Primary Mixed hyperlipidemia [facility]* Diagnosis Neck pain on left side- Primary Cervicalgia Numbness and tingling in both hands [facility] Diagnosis Neck pain on left side- Primary Cervicalgia Numbness and tingling in both hands [facility]* Diagnosis Dysuria- Primary Urinary frequency Microscopic hematuria [facility]* Diagnosis Screening for osteoporosis Special screening for osteoporosis Asymptomatic menopause [facility]* Diagnosis Microscopic hematuria- Primary [facility]* Diagnosis Adjustment disorder with depressed mood documented in this encounter [facility] note* Diagnosis Arthralgia of both hands- Primary Essential hypertension Unspecified essential hypertension Hyperlipidemia, mixed Mixed hyperlipidemia GERD without esophagitis Esophageal reflux Mild episode of recurrent major depressive disorder (HCC) Osteopenia, unspecified location documented in this encounter [facility] note* Diagnosis Encounter for screening mammogram for breast cancer documented in this encounter [facility] note* Diagnosis Adjustment disorder with depressed mood documented in this encounter [facility] for referral (narrative)* Diagnostic Procedure Only (Routine) - Pending Review Specialty Diagnoses / Procedures Referred By Contac t Referred To Contact [facility] Diagnoses Encounter for screening mammogram for breast cancer Procedures JEANNETTE SCREENING SCREENING MAMMOGRAPHY BI 2-VIEW BREAST INC Stacie Kapoor MD [address] [place] [address] [facility] [address] [place] [address] Referral ID Status Reason Start Date Expiration Date Visits Requested Visits Authorized [id number] Pending Review Auto-Generat ed Referral 05/11/2022 06/10/2023 1 1 [facility] for referral (narrative)* Diagnostic Procedure Only (Routine) - Pending Review Specialty Diagnoses / Procedures Referred By Contac t Referred To Contact [facility] Diagnoses Encounter for screening mammogram for breast cancer Procedures JEANNETTE SCREENING SCREENING MAMMOGRAPHY BI 2-VIEW BREAST INC Stacie Kapoor MD [address] [place] [address] [facility] [place] [address] Referral ID Status Reason Start Date Expiration Date Visits Requested Visits Authorized [id number] Pending Review Auto-Generat ed Referral 04/12/2023 05/11/[address] [facility] Summary Purpose Family History No Family History Records FoundNo Family History Records Found Advance Directives No Advanced Directives Records FoundNo Advanced Directives Records Found Health Concerns Infection Onset Date Last Indicated Resolved Time COVID-19 Rule-Out 11/23/2021 11/23/2021 Infection Onset Date Last Indicated Resolved Time COVID-19 Confirmed 11/23/2021 11/23/2021 Reason for Referral Specialty Diagnoses / Procedures Referred By Bert t Referred To Contact Ent - Otolaryngology Diagnoses Dry mouth Procedures CONSULT TO ENT OFFICE/OUTPATIENT NEW HIGH MDM 60-74 MINUTES Stacie Perdue MD [address] [place] [address] Referral ID Status Reason Start Date Expiration Date Visits Requested Visits Authorized [id number] Pending Review PCP Requested Referral 01/01/2022 01/01/2023 1 1 Specialty Diagnoses / Procedures Referred By Bert t Referred To Contact [facility] Diagnoses Neck pain on left side Numbness and tingling in both hands Procedures CONSULT TO PHYSICAL THERAPY PHYSICAL THERAPY EVALUATION HIGH COMPLEX 45 MINS Maximus Burns MD [address] [place] [address] [facility] [address] [place] [address] Referral ID Status Reason Start Date Expiration Date Visits Requested Visits Authorized [id number] Pending Review Auto-Generat ed Referral 09/30/2022 09/30/2023 1 1 Additional Source Comments INFORMATION SOURCE (unrecogn ized section and content) DATE CREATED AUTHOR AUTHOR'S ORGANIZ ATION 04/17/2023 [facility] Source Comments (unrecognize d section and content) In the event this informatio n is protected by the Federal Confidentiality of Alcohol and Drug Abuse Patient Records regulations: The Federal rules restrict any use of the information to criminally investigate or prosecute any alcohol or drug abuse patient.[facility] the event this information is protected by the Federal Confidentiality of Alcohol and Drug Abuse Patient Records regulations: The Federal rules restrict any use of the information to criminally investigate or prosecute any alcohol or drug abuse patient.[facility] [place] the event this information is protected by the Federal Confidentiality of Alcohol and Drug Abuse Patient Records regulations: The Federal rules restrict any use of the information to criminally investigate or prosecute any alcohol or drug abuse patient.[facility] [place] the event this information is protected by the Federal Confidentiality of Alcohol and Drug Abuse Patient Records regulations: The Federal rules restrict any use of the information to criminally investigate or prosecute any alcohol or drug abuse patient.[facility] [place] the event this information is protected by the Federal Confidentiality of Alcohol and Drug Abuse Patient Records regulations: The Federal rules restrict any use of the information to criminally investigate or prosecute any alcohol or drug abuse patient.[facility] [place] the event this information is protected by the Federal Confidentiality of Alcohol and Drug Abuse Patient Records regulations: The Federal rules restrict any use of the information to criminally investigate or prosecute any alcohol or drug abuse patient.[facility] [place] the event this information is protected by the Federal Confidentiality of Alcohol and Drug Abuse Patient Records regulations: The Federal rules restrict any use of the information to criminally investigate or prosecute any alcohol or drug abuse patient.[facility] [place] the event this information is protected by the Federal Confidentiality of Alcohol and Drug Abuse Patient Records regulations: The Federal rules restrict any use of the information to criminally investigate or prosecute any alcohol or drug abuse patient.[facility] [place] the event this information is protected by the Federal Confidentiality of Alcohol and Drug Abuse Patient Records regulations: The Federal rules restrict any use of the information to criminally investigate or prosecute any alcohol or drug abuse patient.[facility] [place] the event this information is protected by the Federal Confidentiality of Alcohol and Drug Abuse Patient Records regulations: The Federal rules restrict any use of the information to criminally investigate or prosecute any alcohol or drug abuse patient.[facility] [place] the event this information is protected by the Federal Confidentiality of Alcohol and Drug Abuse Patient Records regulations: The Federal rules restrict any use of the information to criminally investigate or prosecute any alcohol or drug abuse patient.[facility] [place] the event this information is protected by the Federal Confidentiality of Alcohol and Drug Abuse Patient Records regulations: The Federal rules restrict any use of the information to criminally investigate or prosecute any alcohol or drug abuse patient.[facility] [place] the event this information is protected by the Federal Confidentiality of Alcohol and Drug Abuse Patient Records regulations: The Federal rules restrict any use of the information to criminally investigate or prosecute any alcohol or drug abuse patient.[facility] [place] the event this information is protected by the Federal Confidentiality of Alcohol and Drug Abuse Patient Records regulations: The Federal rules restrict any use of the information to criminally investigate or prosecute any alcohol or drug abuse patient.[facility] [place] the event this information is protected by the Federal Confidentiality of Alcohol and Drug Abuse Patient Records regulations: The Federal rules restrict any use of the information to criminally investigate or prosecute any alcohol or drug abuse patient.[facility] [place] the event this information is protected by the Federal Confidentiality of Alcohol and Drug Abuse Patient Records regulations: The Federal rules restrict any use of the information to criminally investigate or prosecute any alcohol or drug abuse patient.[facility] [place] the event this information is protected by the Federal Confidentiality of Alcohol and Drug Abuse Patient Records regulations: The Federal rules restrict any use of the information to criminally investigate or prosecute any alcohol or drug abuse patient.[facility] [place] the event this information is protected by the Federal Confidentiality of Alcohol and Drug Abuse Patient Records regulations: The Federal rules restrict any use of the information to criminally investigate or prosecute any alcohol or drug abuse patient.[facility] [place] the event this information is protected by the Federal Confidentiality of Alcohol and Drug Abuse Patient Records regulations: The Federal rules restrict any use of the information to criminally investigate or prosecute any alcohol or drug abuse patient.[facility] [place] the event this information is protected by the Federal Confidentiality of Alcohol and Drug Abuse Patient Records regulations: The Federal rules restrict any use of the information to criminally investigate or prosecute any alcohol or drug abuse patient.[facility] [place] the event this information is protected by the Federal Confidentiality of Alcohol and Drug Abuse Patient Records regulations: The Federal rules restrict any use of the information to criminally investigate or prosecute any alcohol or drug abuse patient.[facility] [place] the event this information is protected by the Federal Confidentiality of Alcohol and Drug Abuse Patient Records regulations: The Federal rules restrict any use of the information to criminally investigate or prosecute any alcohol or drug abuse patient.[facility] [place] the event this information is protected by the Federal Confidentiality of Alcohol and Drug Abuse Patient Records regulations: The Federal rules restrict any use of the information to criminally investigate or prosecute any alcohol or drug abuse patient.[facility] [place] the event this information is protected by the Federal Confidentiality of Alcohol and Drug Abuse Patient Records regulations: The Federal rules restrict any use of the information to criminally investigate or prosecute any alcohol or drug abuse patient.[facility] [place] Reason for Visit (unrecogniz ed section and content) Specialty Diagnoses / Procedures Referred By Bert t Referred To Contact [facility] Diagnoses Neck pain on left side Numbness and tingling in both hands Procedures CONSULT TO PHYSICAL THERAPY PHYSICAL THERAPY EVALUATION HIGH COMPLEX 45 MINS Maximus Burns MD [address] [place] [address] [facility] [address] [place] [address] Referral ID Status Reason Start Date Expiration Date Visits Requested Visits Authorized [id number] Authorized Auto-Generat ed Referral 10/03/2022 03/26/2023 20 20 Reason Comments Cough Throat pain rated 5, Bolton, bilateral ear pain x2 days Specialty Diagnoses / Procedures Referred By Contac t Referred To Contact [facility] / [facility] Diagnoses Sore throat sore throat, headache and bodyaches Procedures OFFICE/OUTPATIENT ESTABLISHED MOD MDM 30-39 MIN EST SAME DAY Self, Katie Choi, HAND CANDY CUTTER.S[employer]IOR [employer] [address] [place] [address] Referral ID Status Reason Start Date Expiration Date Visits Re quested Visits Authorized [id number] Closed 11/23/2021 03/26/2022 1 1 Reason Comments Results Reason Comments Sore Throat CODY ear pain, BOLTON x l ast night, covid + 11/24 Specialty Diagnoses / Procedures Referred By Contac t Referred To Contact Family Practice / [facility] Diagnoses Swollen throat swollen throat, breathing is fine, ear trouble and headache Procedures OFFICE/OUTPATIENT ESTABLISHED MOD MDM 30-39 MIN EST SAME DAY Self, Linda Han, HAND CANDY CUTTER.S[employer]IOR [employer] CONSULTANT [address] [place] [address] Referral ID Status Reason Start Date Expiration Date Visits Re quested Visits Authorized [id number] Closed 12/03/2021 03/26/2022 1 1 Reason Comments Sore Throat Long covid? + 2 brain fog And being cold and n o sex drive not related to covid- ongoing x 1 year Specialty Diagnoses / Procedures Referred By Contac t Referred To Contact Family Medicine / [facility] Diagnoses congestion, sore throat, brain fog, always cold Procedures 4C EST Self Stacie Perdue MD [address] [place] [address] Referral ID Status Reason Start Date Expiration Date Visits Re quested Visits Authorized [id number] Closed 01/01/2022 03/26/2022 1 1 Reason Comments Consult Dry mouth/ intermitt ent throat pain- workup in February was negative for sjogrens, had covid on 11/23/21 Specialty Diagnoses / Procedures Referred By Contact Referred To Contact Ent - Otolaryngology / AUDIOLOGY Diagnoses Dry mouth Procedures CONSULT TO ENT OFFICE/OUTPATIENT [facility] MDM 60-74 MINUTES Stacie Perdue MD [address] [place] [address] Ot[facility] [address] [address] Referral ID Status Reason Start Date Expiration Date V isits Requested Visits Authorized [id number] Closed PCP Requested Referral 01/01/2022 01/01/2023 1 1 Reason Onset Date Comments Refill Request 03/03/2022 Reason Comments Refill Request Reason Onset Date Comments Refill Request 09/09/2022 Reason Comments Neck Pain Neck and shoulder pa in x 2 weeks and SOB x 1 week Specialty Diagnoses / Procedures Referred By Betr munroe Referred To Contact [facility] Diagnoses Neck pain Shoulder pain Neck and left shoulder pain Procedures OFFICE/OUTPATIENT ESTABLISHED [facility] 30-39 MIN EST SAME DAY Self Maximus Burns MD [address] [place] [address] Referral ID Status Reason Start Date Expiration Date Visits Re quested Visits Authorized [id number] Closed 09/30/2022 03/26/2023 1 1 Reason Comments Orders Reason Comments Physical Therapy Reason Comments Urinary Frequency Frequency, urgency a nd burning x 6 days Specialty Diagnoses / Procedures Referred By Bert munroe Referred To Contact Radiology / RADIO BONE DENSITY [facility] Diagnoses Encounter for screening for osteoporosis Asymptomatic menopausal state Screening for osteoporosis [Z13.820]; Asymptomatic menopause [Z78.0] Procedures DXA BONE DENSITY STUDY 1/> SITES AXIAL SKEL BONE DENSITY ADULT [address] APRN.SENIOR [employer] CONSULTANT [address] [place] [address] Radio Bone Density [facility] [address] [place] [address] Referral ID Status Reason Start Date Expiration Date Visits Re quested Visits Authorized [id number] Closed 10/26/2022 03/26/2023 1 1 Reason Onset Date Comments Refill Request 01/28/2023 Reason Comments Follow Up 6 month Specialty Diagnoses / Procedures Referred By Bert t Referred To Contact Family Medicine / [facility] Diagnoses 6 month follow up Procedures 4C EST PodlogarMerced APRN.SENIOR [employer]ANT [address] [place] [address] Stacie Perdue MD [address] [place] [address] Referral ID Status Reason Start Date Expiration Date V isits Requested Visits Authorized [id number] Pending Review 04/06/2023 07/05/2023 1 1 Reason Onset Date Comments Refill Request 05/16/2023 Care Teams (unrecognized sec tion and content) Guzzler Builder Relationship Specialty Start Date End Date Stacie Perdue MD [address] [place], [place] [id number] [phone] PCP - General Family Practice 06/07/17 Guzzler Builder Relationship Specialty Start Date End Date Stacie Perdue MD [address] [place] [address] PCP - General Family Practice 06/07/17 Guzzler Builder Relationship Specialty Start Date End Date Stacie Perdue MD [address] [place] [address] PCP - General Family Medicine 06/07/17 Guzzler Builder Relationship Specialty Start Date End Date Stacie Perdue MD [address] [place], [place] [id number] [phone] PCP - General Family Medicine 06/07/17 Guzzler Builder Relationship Specialty Start Date End Date Stacie Perdue MD [address] [facility] [address] PCP - General Family Medicine 06/07/17 Guzzler Builder Relationship Specialty Start Date End Date Satcie Perdue MD [address] [facility] [address] PCP - General Family Medicine 06/07/17 Guzzler Builder Relationship Specialty Start Date End Date Stacie Perdue MD [address] [facility] [place] [address] PCP - General Family Medicine 06/07/17 Guzzler Builder Relationship Specialty Start Date End Date Stacie Perdue MD [address] [facility] [facility] [place] [address] PCP - General Family Medicine 06/07/17 Guzzler Builder Relationship Specialty Start Date End Date Stacie Perdue MD [address] [facility] [facility] [place] [address] PCP - General Family Medicine 06/07/17 Guzzler Builder Relationship Specialty Start Date End Date Stacie Perdue MD [address] [facility] [place] [place] [address] PCP - General Family Medicine 06/07/17 Guzzler Builder Relationship Specialty Start Date End Date Stacie Perdue MD [address] [facility] [facility] [place] [address] PCP - General Family Medicine 06/07/17 Guzzler Builder Relationship Specialty Start Date End Date Stacie Perdue MD [address] [facility] [facility] [place] [address] PCP - General Family Medicine 06/07/17 Guzzler Builder Relationship Specialty Start Date End Date Stacie Perdue MD [address] [facility] [facility] [place] [address] PCP - General Family Medicine 06/07/17 Guzzler Builder Relationship Specialty Start Date End Date Stacie Perdue MD [address] [facility] [place] [place] [address] PCP - General Family Medicine 06/07/17 Guzzler Builder Relationship Specialty Start Date End Date Stacie Perdue MD [address] [facility] [place] [place] [address] PCP - General Family Medicine 06/07/17 Guzzler Builder Relationship Specialty Start Date End Date Stacie Perdue MD [address] [facility] [place] [place] [address] PCP - General Family Medicine 06/07/17 Guzzler Builder Relationship Specialty Start Date End Date Stacie Perdue MD [address] [facility] [place] [place] [address] PCP - General Family Medicine 06/07/17 Guzzler Builder Relationship Specialty Start Date End Date Stacie Perdue MD [address] [facility] [place] [place] [address] PCP - General Family Medicine 06/07/17 Guzzler Builder Relationship Specialty Start Date End Date Stacie Perdue MD [address] [facility] [place] [address] PCP - General Family Medicine 06/07/17 Guzzler Builder Relationship Specialty Start Date End Date Stacie Perdue MD [address] [facility] [place] [place] [address] PCP - General Family Medicine 06/07/17 FOR RECORDS PERTAINING TO PATIENTS WHO ARE OR HAVE BEEN ENROLLED IN A CHEMICAL DEPENDENCY/SUBSTANCEABUSE PROGRAM, SOME INFORMATION MAY BE OMITTED. This clinical summary was aggregated from multiple sources. Caution should be exercised in using it in the provision of clinical care. This summary normalizes information from multiple sources, and as a consequence, information in this document may materially change the coding, format and clinical context of patient data. In addition, data may be omitted in some cases. CLINICAL DECISIONS SHOULD BE BASED ON THE PRIMARY CLINICAL RECORDS. [facility]. provides no warranty or guarantee of the accuracy or completeness of information in this document.
== END | disposition home or self-care (01) ==
LOC: OPBI 07:21
PROVIDERS: PCP Family Medicine; Referring Provider Nurse Practitioner Women's Health; Visit Provider Nurse Practitioner Women's Health
DX: Z12.31 Encounter for screening mammogram for malignant neoplasm of breast (principal)
CPT/HCPCS: 77063; 77067

== ENCOUNTER → 2024-05-28 | Outpatient (CLI) | payer OTHER, MEDICARE, SELFPAY ==
--- NOTE | 2024-05-28 08:30 | BI_ITS ---
PROCEDURE: SCRN MAMM (CAD)W/POOL BILAT REASON FOR EXAM: F, Age 68 y/o, presents for annual screening mammogram. No family history of breast cancer. TECHNIQUE: Bilateral screening digital breast tomosynthesis with 2D and 3D images. Computer aided detection. COMPARISON: 05/23/2023, 05/03/2022 FINDINGS: The breasts are extremely dense which lowers the sensitivity of mammography. The mammogram demonstrates that the patient has dense breasts. Supplemental screening with whole breast ultrasound or MRI may be considered for further evaluation. No suspicious masses, areas of developing architectural distortion, or suspicious calcifications. BI/SCRN MAMM (CAD)W/POOL BILAT IMPRESSION: There is no mammographic evidence of malignancy. BI-RADS 1: NEGATIVE. RECOMMEND ANNUAL MAMMOGRAPHIC SCREENING. Follow-up code: Routine Follow-up The patient will be notified of the results by letter. Reading Location: [id number]
== END | disposition home or self-care (01) ==
PROVIDERS: PCP Family Medicine; Referring Provider Nurse Practitioner Women's Health; Visit Provider Nurse Practitioner Women's Health
DX: Z12.31 Encounter for screening mammogram for malignant neoplasm of breast (principal)
CPT/HCPCS: 77063; 77067